=== PATIENT | female | born 1955 | race Caucasian/White ===

== ENCOUNTER → 2020-08-16 | Outpatient (CLI) | payer MEDICARE, OTHER ==
[~2020-08-16] MED LIST: ACET325C5 PO; AMLO5CAP45 PO; ASPI81CH33 PO; ATEN50TA2 PO; CALCTAB89 PO; EZET10TA21 PO; FURO20TA2 PO; LIDOCAINE 1% MDV 20ML VIAL As Ordered ONE; OMEG12003 PO; SIMV20TA22 PO; SODIUM BICARBONATE 8.4% INJ 50MEQ 50 ML VIAL As Ordered ONE; THERTAB52 PO; TRAM50TA2 PO; VITA50005 PO
[2020-08-16 11:15] VITALS: BP 123/62
--- NOTE | 2020-08-16 16:42 | REP ---
INDICATION: LT CHEST/PARASPINAL CHEST MASS. COMPARISON: None. TECHNIQUE: The procedure is performed by LANDRY Arce, under the direct supervision of Dr. Hall. The risks and benefits of the procedure were explained to the patient and informed consent was obtained both orally and written. Directly prior to the start of the procedure, a formal timeout was done in the exam room. One of the several mediastinal lymph nodes was localized using CT guidance. Skin was prepped and draped in the usual sterile fashion. Four ml of 1% lidocaine 10 mg/ml was used as a local anesthetic. FINDINGS: Using CT guidance a 19/20 gauge coaxial needle biopsy system was inserted and advanced into 1 of the right sided paraspinal lymph nodes. Eight core biopsy samples were obtained, 4 were placed in formalin and sent to the lab, and remaining 4 were placed in RPMI solution to be sent out. CT images obtained directly after the biopsy show no evidence of pneumothorax, or hematoma. After the appropriate amount of monitored convalescence the patient was discharged from the department. IMPRESSION: CT guided Lorudes spinal lymph node biopsy <Electronically signed by Negar Hampton > 08/16/20 [id number] <Electronically signed by Niitsh Hall > 08/16/20 [id number]
== END ==
LOC: M IRPRO 07:54
PROVIDERS: ATTEND Specialist
DX: C77.1 Secondary and unspecified malignant neoplasm of intrathoracic lymph nodes (principal)

== ENCOUNTER → 2020-08-23 | Outpatient (CLI) | payer MEDICARE, OTHER ==
[~2020-08-23] MED LIST changes: +MIDAZOLAM INJ 2MG/2ML VIAL (J2250 PER 1MG) As Ordered ONE; +ONDA8TAB8 PO; +PROC10TA4 PO; +PROMETHAZINE INJ 25 MG/ML VIAL (J2550) As Ordered ONE; -SODIUM BICARBONATE 8.4% INJ 50MEQ 50 ML VIAL As Ordered ONE; +ceFAZolin 1GM VIAL (J0690 PER 500MG) As Ordered ONE; +diphenhydrAMINE 50MG/ML VIAL (J1200) As Ordered ONE; +fentaNYL 100 MCG/2 ML INJECTION (J3010) As Ordered ONE
--- NOTE | 2020-08-23 08:27 | IRHP ---
[facility] IR Pre-Procedure H & P General Date of Service: Aug 23, 2020 Procedure: Same Day Surgery Interval History and Physical I have seen the patient and reviewed last H & P performed within 30 days. There is no significant interval change. History of Present Illness Chief Complaint The patient is a 65-year-old female admitted with a reason for visit of Lymphoproliferative Disease. PRE-PROCEDURE DIAGNOSIS: lymphoma HEART: normal rate. LUNGS: Normal breathing at rest. ASA Classification ASA Classification: III-Severe systemic dis. Mallampati Score: II NPO: Yes Problems with prior sedation: No Obstructive Sleep Apnea: No Plan moderate sedation Allergies Coded Allergies: ciprofloxacin (Verified Allergy, Intermediate, HIVES AND RASH, 08/03/20) Home Medications Scheduled Amlodipine Besylate/Benazepril (Amlodipine-Benazepril 5-40 mg), 1 CAP PO DAILY, (Reported) Aspirin (Aspirin), 81 MG PO DAILY, (Reported) Atenolol (Atenolol), 1 TAB PO DAILY, (Reported) Ezetimibe (Ezetimibe), 10 MG PO DAILY, (Reported) Furosemide (Furosemide), 1 TAB PO DAILY, (Reported) Nichols-3/Dha/Epa/Fish Oil (Fish Oil 1,200 mg Softgel), 1 CAP PO BID, (Reported) Simvastatin (Simvastatin), 1 TAB PO QPM, (Reported) Scheduled PRN Tramadol HCl (Tramadol HCl), 1 TAB PO QIDP PRN for pain, (Reported) Miscellaneous Medications Acetaminophen (Tylenol), 325 MG PO, (Reported) Ergocalciferol (Vitamin D2) (Vitamin D2), 1,250 MCG PO, (Reported) Discontinued Medications Aspirin (Aspirin), Unknown Dose PO DAILY, (Reported) Discontinued Reason: Pt states not taking Calcium Carbonate (Calcium), 1 TAB PO DAILY, (Reported) Discontinued Reason: Pt states not taking Multivitamin,Therapeutic (Thera-Tabs), 1 TAB PO DAILY, (Reported) Discontinued Reason: Pt states not taking VS, I&O, 24H, Fishbone Vital Signs/I&O Vital Signs Date Time Temp Pulse Resp B/P (MAP) Pulse Ox O2 Delivery O2 Flow Rate FiO2 08/23/20 07:35 98.3 58 18 95 Room Air LASHAE SANTOS MD Aug 23, 2020 08:27
[2020-08-23 11:00] VITALS: BP 137/60
--- NOTE | 2020-08-24 10:14 | POST-OPPD ---
Postoperative Procedure Note Date Of Procedure: Aug 23, 2020 Time Of Procedure: 16:00 IR Ultrasound and fluoroscopy guided port placement. IR Ultrasound of the neck. IR Moderate sedation. Clinical indication: Lymphoma. Physician: Dr. Parr. Procedure: The patient was advised of the benefits, risks, and alternatives of the procedure and informed consent was obtained. A time-out was performed with verification of the patient's name, MRN, site of procedure and type of procedure to be performed. The patient was positioned in the supine position on the angiographic table. The site was prepped and draped in the usual sterile fashion. Moderate sedation was performed by the physician including the presence of an independent trained RN who assisted and monitored the patient's level of consciousness and physiologic status. Following the administration of fentanyl and Versed , the physician spent 45 minutes of continuous face to face time with the patient. Ultrasound of the neck reveals a patent and compressible right internal jugular vein. A engineering consultant radiograph reveals no gross abnormality. The neck and anterior chest wall were anesthetized with lidocaine. The right internal jugular vein was accessed using a microintroducer needle under ultrasound guidance, via a lateral approach. An 018 wire was advanced into the superior vena cava, the needle was removed and a microsheath was placed. An Amplatz wire was then passed into the inferior vena cava. An incision at the internal jugular vein access site and anterior chest wall were made using a scalpel. An incision was made at the anterior chest wall. A small pocket was created using a combination of blunt and sharp dissection. A tunneling device was then used to pass the catheter from the pocket to the neck puncture site. An 8- Gabonese Angio mVisum Smart power port was then positioned in the pocket. The catheter was then measured and cut. The introducer sheath was exchanged for a peel-away sheath. The catheter was passed through the peel-away sheath into the internal jugular vein and the peel-away sheath was removed. The port tip was positioned at the cavoatrial junction. The port was then accessed with a Tate needle. The port flushes and aspirates well. The puncture site in the neck was closed. The chest wall incision was then closed with 2-0 Vicryl and 4-0 Monocryl. Glue and Steri- Strips were applied. A sterile dressing was then applied. The patient tolerated the procedure well and was returned to the PRU in stable condition. Estimated blood loss: <5 ml. Complications: None. Conclusion: 1. Successful placement of an 8-Gabonese Angio dynamics Smart power port via the right internal jugular vein. The port is ready for immediate use. 2. Patient to follow up in IR clinic in 2 weeks. Thank you for this referral. LASHAE PARR MD Aug 24, 2020 10:14
== END ==
LOC: M IRPRO 07:21
PROVIDERS: ATTEND Radiology Diagnostic Radiology
DX: D47.9 Neoplasm of uncertain behavior of lymphoid, hematopoietic and related tissue, unspecified (principal); Z79.899 Other long term (current) drug therapy
CPT/HCPCS: 36561; 99152; 99153; C1769; C1788; C1894; J0690; J1642; J1644; J2250; J3010

== ENCOUNTER → 2020-08-28 | Outpatient (CLI) | payer MEDICARE, OTHER ==
[~2020-08-28] MED LIST changes: -LIDOCAINE 1% MDV 20ML VIAL As Ordered ONE; -MIDAZOLAM INJ 2MG/2ML VIAL (J2250 PER 1MG) As Ordered ONE; +OXYC1TAB23 PO; -PROMETHAZINE INJ 25 MG/ML VIAL (J2550) As Ordered ONE; -ceFAZolin 1GM VIAL (J0690 PER 500MG) As Ordered ONE; -diphenhydrAMINE 50MG/ML VIAL (J1200) As Ordered ONE; -fentaNYL 100 MCG/2 ML INJECTION (J3010) As Ordered ONE
--- NOTE | 2020-09-04 14:03 | REP ---
INDICATION: STAGING LEFT LUNG CANCER C34.82. COMPARISON: Comparison CT chest 07/18/2020.. TECHNIQUE: Forty-seven minutes following the intravenous injection of a 14.75 mCi dose of F-18 FDG, three-dimensional PET scintigraphy is acquired from the skull base to the proximal thighs. Triplanar noncontrast CT scanning is acquired through the same anatomic range for attenuation correction, and image registration with scan parameters optimized to minimize radiation exposure to the patient. PET scintigraphy and CT datasets were fused and displayed on a workstation with multiplanar and projection display capability. FINDINGS: There is left-sided hypermetabolic supraclavicular lymphadenopathy as seen on the chest CT. Maximum standard uptake value 7.26. There is left axillary hypermetabolic activity. There are pleural based hypermetabolic nodular foci bilaterally. A small left medial apical pleural based focus has 7.16 SUV. A larger pleural based mass on the right at the level of the posterior aspect of the aortic knob is maximum SUV value 14.78. There is bulky confluent subcarinal and middle mediastinal lymphadenopathy. Maximum standard uptake value 17.11. There is left hilar hypermetabolic jinny activity which is confluent with this maximum SUV value 13.90. Another pleural-based focus in the left base is 6.92 SUV. There is retrocrural hypermetabolic adenopathy bilaterally maximum standard uptake value 9.14 on the left and 7.75 on the right. There are multiple metastatic hypermetabolic foci in the liver maximum standard uptake value ranging up to 11 point 0 8. There is bulky hypermetabolic celiac axis adenopathy, maximum SUV value 8.78. No other abnormal hypermetabolic focus is seen. There are small bilateral pleural effusions. No hypermetabolic lung mass or obvious lung nodule is seen. IMPRESSION: Bulky hypermetabolic jinny distribution in adenopathy including left supraclavicular, left axillary, mediastinal, retrocrural and epicardial Ack and, and celiac axis lymph node distribution. There are pleural based foci bilaterally in the paravertebral distribution. There are metastatic hypermetabolic foci in the liver. Small bilateral pleural effusions are noted. <Electronically signed by Nitish Hall > 09/04/20 [id number]
== END ==
LOC: M PLARAD 14:16
PROVIDERS: ATTEND Specialist
DX: C34.82 Malignant neoplasm of overlapping sites of left bronchus and lung (principal)
CPT/HCPCS: 78815; A9552

== ENCOUNTER → 2020-08-29 | Outpatient (CLI) | payer MEDICARE, OTHER ==
[~2020-08-29] MED LIST changes: -OXYC1TAB23 PO; +PROHANCE 279.3MG/ML 15ML VIAL As Ordered ONE
--- NOTE | 2020-08-30 08:54 | REPVR ---
PROCEDURE INFORMATION: Exam: MR Head Without and With Contrast Exam date and time: 08/29/2020 7:39 PM Age: 65 years old Clinical indication: Primary cancer: Lung. TECHNIQUE: Imaging protocol: MR of the head without and with intravenous contrast. Contrast material: PROHANCE; Contrast volume: 13 ml; Contrast route: INTRAVENOUS (IV); COMPARISON: No relevant prior studies available. FINDINGS: Brain: There are occasional nonspecific foci of high signal abnormality in the avila radiata and centrum semiovale. These are best seen on the flair images. These foci may represent areas of gliosis, demyelination, and/or chronic ischemic change. Cerebral ventricles: Normal. No ventriculomegaly. Bones/joints: Unremarkable. Paranasal sinuses: Normal as visualized. No acute sinusitis. Mastoid air cells: Normal as visualized. No mastoid effusion. Orbital cavity: Unremarkable. Soft tissues: Unremarkable. Other findings: There is no abnormal enhancement. IMPRESSION: No acute findings. Electronically signed by: Augustin Lieberman On 08/30/2020 08:54:59 AM
== END ==
LOC: M RAD 17:49
PROVIDERS: ATTEND Specialist
DX: C34.90 Malignant neoplasm of unspecified part of unspecified bronchus or lung (principal)
CPT/HCPCS: 70553; A9576

== ENCOUNTER → 2020-09-12 | Outpatient (POV) | payer MEDICARE, OTHER ==
[~2020-09-12] MED LIST changes: +OXYC1TAB23 PO; -PROHANCE 279.3MG/ML 15ML VIAL As Ordered ONE
--- NOTE | 2020-09-14 10:38 | IRPN ---
[facility] IR Progress Note IR Progress Note DATE: Sep 12, 2020 Patient agreed to this telephone follow-up. I spent 5 minutes talking to the patient. FOLLOW-UP: Status post port placement. Patient states the port site is doing well. No pain, discharge or swelling. Port was used without any issues. ON EXAMINATION: No video on patient side. IMPRESSION: Doing well status post port placement. No further follow-up scheduled unless initiated by patient and or referring provider. Thank you for this referral Allergies Coded Allergies: ciprofloxacin (Verified Allergy, Intermediate, HIVES AND RASH, 08/03/20) LASHAE SANTOS MD Sep 14, 2020 10:38
== END ==
LOC: M TMIRPOV 09:02
PROVIDERS: ATTEND Radiology Diagnostic Radiology
DX: Z45.2 Encounter for adjustment and management of vascular access device (principal)

== ENCOUNTER → 2020-09-13 | Outpatient (CLI) | payer MEDICARE, OTHER ==
[~2020-09-13] MED LIST changes: +COLA100C5 PO; +DIFL10SU PO; +FENT12DI8 TOP; +MAGICMW SSP; +OXYC-517 PO; +SENN8.6T28 PO
--- NOTE | 2020-09-13 10:46 | RADONC.CN ---
Radiation Oncology Hx/Consult Radiation Oncology Consult Date of Service: Sep 13, 2020 Pt Identifier Caitlin Ocampo is a 65 year old female former smoker (quit 08/21/20) with newly diagnosed ES SCLC [id number]. She has started first line chemotherapy with Dr. Wooten on 09/06/20 and is seen today for consideration of palliative RT due to concern of severe back and abdominal pain as well as dysphagia from her large confluent jinny masses. Diagnosis/Treatment History Oncologic History Presented in June 2020 with new onset back pain and abdominal pain. This led to a CT chest on 07/18/20 which showed a left supraclavicular node as well as a periaortic jinny conglomerate measuring ~ 9 cm in greatest extent. CT biopsy of the periaortic mass on 08/16/20 revealed SCLC. She underwent PET-CT on 08/28/20 which showed liver metastases as well as mesenteric and celiac adenopathy in addition to the previously identified thoracic disease. She had MRI brain on 08/29/20 which was negative. Carboplatin/etoposide/atezolizumab was started on 09/06/20. Relevant data: 08/16/20 Biopsy Soft tissue, mass, core biopsy and flow cytometry: Small cell carcinoma (see comment). -4/TR 08/28/20 PET-CT FINDINGS: There is left-sided hypermetabolic supraclavicular lymphadenopathy as seen on the chest CT. Maximum standard uptake value 7.26. There is left axillary hypermetabolic activity. There are pleural based hypermetabolic nodular foci bilaterally. A small left medial apical pleural based focus has 7.16 SUV. A larger pleural based mass on the right at the level of the posterior aspect of the aortic knob is maximum SUV value 14.78. There is bulky confluent subcarinal and middle mediastinal lympha denopathy. Maximum standard uptake value 17.11. There is left hilar hypermetabolic jinny activity which is confluent with this maximum SUV value 13.90. Another pleural- based focus in the left base is 6.92 SUV. There is retrocrural hypermetabolic adenopa thy bilaterally maximum standard uptake value 9.14 on the left and 7.75 on the right. There are multiple metastatic hypermetabolic foci in the liver maximum standard uptake value ranging up to 11 point 0 8. There is bulky hypermetabolic celiac axis adenopathy, maximum SUV value 8.78. No other abnormal hypermetabolic focus is seen. There are small bilateral pleural effusions. No hypermetabolic lung mass or obvious lung nodule is seen. IMPRESSION: Bulky hypermetabolic jinny distribution in adenopathy including left supraclavicular, left axillary, mediastinal, retrocrural and epicardial Ack and, and celiac axis lymph node distribution. There are pleural based foci bilaterally in the paravertebral distribution. There are metastatic hypermetabolic foci in the liver. Small bilateral pleural effusions are noted. 08/29/20 MRI head FINDINGS: Brain: There are occasional nonspecific foci of high signal abnormality in the avila radiata and centrum semiovale. These are best seen on the flair images. These foci may represent areas of gliosis, demyelination, and/or chronic ischemic change. Cerebral ventricles: Normal. No ventriculomegaly. Bones/joints: Unremarkable. Paranasal sinuses: Normal as visualized. No acute sinusitis. Mastoid air cells: Normal as visualized. No mastoid effusion. Orbital cavity: Unremarkable. Soft tissues: Unremarkable. Other findings: There is no abnormal enhancement. IMPRESSION: No acute findings. Interval History Caitlin is here with her . Her pain is predominantly in the left mid-back and upper abdomen. Without pain medication (currently on 12.5 mcg fentanyl patch and percocet PRN) pain is 8-10/10 constant. With pain medication she has good control 0-1/10. She is also having dysphagia to solids. Can eat soft food and drink without much difficulty. She has lost some weight. She had nausea with her first cycle of chemotherapy which is now improved. She has quit smoking, does not desire quit aids at this time. Past Medical History: HTN HPL Past Surgical History: Tubal ligation 1983 Family History: Brother prostate cancer alive Grandmother breast cancer Cousin HL Social History: 25+ pack year former smoker Does not abuse alcohol Allergies / Meds Allergies: Coded Allergies: ciprofloxacin (Verified Allergy, Intermediate, HIVES AND RASH, 08/03/20) Home Meds Active Scripts Oxycodone HCl/Acetaminophen (Oxycodone-Acetaminophen 5-325) 1 Each Tablet, 1 TAB PO TIDP PRN for pain MDD 3 Tablet(s) for 20 Days, #60 TAB Prov:JC WOTOEN MD 09/06/20 Prochlorperazine Maleate (Prochlorperazine Maleate) 10 Mg Tablet, 10 MG PO Q8HP PRN for NAUSEA OR VOMITING, #30 TAB 3 Refills Prov:JC WOOTEN MD 08/25/20 Ondansetron (Ondansetron Odt) 8 Mg Tab.rapdis, 8 MG PO Q8HP PRN for NAUSEA OR VOMITING, #30 TAB 3 Refills Prov:JC WOOTEN MD 08/25/20 Reported Medications Acetaminophen (Tylenol) 325 Mg Capsule, 325 MG PO, CAP 08/03/20 Tramadol HCl (Tramadol HCl) 50 Mg Tablet, 1 TAB PO QIDP PRN for pain MDD 2 Tablet(s) for 30 Days, #60 TAB 08/03/20 Furosemide (Furosemide) 20 Mg Tablet, 1 TAB PO DAILY for 30 Days, #30 TAB 08/03/20 Atenolol (Atenolol) 50 Mg Tablet, 1 TAB PO DAILY for 30 Days, #30 TAB 08/03/20 Amlodipine Besylate/Benazepril (Amlodipine-Benazepril 5-40 mg) 1 Each Capsule, 1 CAP PO DAILY for 30 Days, #30 CAP 08/03/20 Ezetimibe (Ezetimibe) 10 Mg Tablet, 10 MG PO DAILY for 30 Days, #30 TAB 08/03/20 Ergocalciferol (Vitamin D2) (Vitamin D2) 50,000 Units Cap, 1250 MCG PO, CAP 08/03/20 Simvastatin (Simvastatin) 20 Mg Tablet, 1 TAB PO QPM for 30 Days, #30 TAB 08/03/20 Discontinued Reported Medications Aspirin (Aspirin) 81 Mg Tab.chew, 81 MG PO DAILY for pain for 30 Days, #30 TAB 08/21/20 Lindsay-3/Dha/Epa/Fish Oil (Fish Oil 1,200 mg Softgel) 1 Each Capsule.dr, 1 CAP PO BID for 30 Days, #60 CAP 08/03/20 Review of Systems Constitutional: Reports: Fatigue, Weight Loss; Denies: Chills, Fever, Night Sweats Eyes: Denies: Pain, Vision change HEENT: Denies: Head Aches, Dysphagia, Sore Throat Skin: Denies: Rash, Lesions, Bruising Pulmonary: Reports: Dyspnea; Denies: Cough Cardiovascular: Reports: Chest Pain; Denies: Palpitations, Edema Gastrointestinal: Reports: Abdominal Pain; Denies: Nausea, Vomiting, Diarrhea Genitourinary: Denies: Dysuria, Frequency, Incontinence Hematologic: Denies: Bruising, Petecchia, Enlarged Lymph Nodes Musculoskeletal: Reports: Back pain; Denies: Neck pain Neurological: Denies: Weakness, Numbness, Incoordination Psych: Reports: Mood Normal; Denies: Memory Issues, Thoughts of Self Harm Vital Signs Ht 67" Wt 144 lbs T 98 P 72 RR 18 BP 89/64 O2 96% Pain 0 Fatigue 0 General Exam: Positive: Alert, Cooperative, No Acute Distress Eye Exam: Positive: PERRLA, EOMI ENT EXAM: Positive: Mucous membr. moist/pink, Pharynx Normal Neck Exam: Negative: Thyromegaly, Lymphadenopathy (Left supraclavicular fossa withtout appreciable adenopathy) Chest Exam: Negative: Normal air movement (Diminished right base. Pleural rub left mid-base), Rales, Rhonchi, Wheezing Heart Exam: Positive: Rate Normal, Regular Rhythm; Negative: Gallops, Murmurs, Rubs Abdomen Exam: Positive: Normal bowel sounds, Soft; Negative: Tenderness, Mass Extremity Exam: Negative: Edema, Tenderness Skin Exam: Positive: Nl turgor and temperature; Negative: Rash Neuro Exam: Positive: Normal Gait, Normal Speech, Cranial Nerves 3-12 NL Psych Exam: Positive: Mental status NL, Mood NL, Memory Intact Diagnostic and Laboratory Diagnostic Review Radiologic images, relevant labs and pathology reports were personally reviewed and discussed with Ms. Ocampo. Assessment and Plan Impression Ms. Ocampo is a 65 year old female former smoker (quit 08/21/20) with newly diagnosed ES SCLC [id number]. She has started first line chemotherapy with Dr. Wooten on 09/06/20 and is seen today for consideration of palliative RT due to concern of severe back and abdominal pain as well as dysphagia from her large confluent jinny masses. Stage SCLC ES [id number] stage IVB Performance Status ECOG 1 Plan We had an extensive discussion with Ms. Ocampo regarding the diagnosis at hand and available therapeutic options. She has an unusual distribution of disease without an obvious primary or hilar mass. Her adenopathy in the chest is extensive periaortic and compressing her esophagus causing her dysphagia. In addition she reports left mid-back pain which could be emanating from this large mass as well. She also has abdominal pain which is best explained by the bulky celiac and mesenteric adenopathy, which is essentially contiguous with the thoracic jinny burden. She has started chemotherapy and we discussed this is the mainstay of treatment, however given her symptoms, I think she would benefit from palliative RT to the thoracic and upper abdominal jinny burden, I would give 30 Gy in 10 fractions with DCA planning, given that this is a contiguous field, with daily CBCT for localization. The goals are relief of pain and dysphagia. We discussed the logistics of receiving radiation therapy in detail including the need for a 1-time planning session. This will occur 09/14/20. We reviewed the side effects of RT including fatigue, nausea, and in particular esophagitis, which should be mild and self limited, especially as she is on an effective narcotic regimen to start. I also will be ordering an MRI scan for ~ 3 months from now to inform PCI deci erika making. I explained briefly the role of PCI in ES SCLC and that the alternative of MRI surveillance is equally viable should there be no evidence of brain metastases at the end of systemic therapy. After discussing the risks, benefits and alternatives to radiation therapy, Ms. Ocampo was amenable to pursuing radiotherapy. All questions were answered to the patient's satisfaction. We instructed the patient that if there were any questions,concerns or changes in clinical status in the interim to contact us. Recommendations Palliative RT to jinny masses 30 Gy in 10 fractions Simulation tomorrow MRI head in 3 months for PCI decision making Billing Statement Total time of [33] minutes was spent preparing for the visit [3], obtaining HPI [5], examining the patient [3], reviewing diagnostic tests [4], discussing management options [10], coordinating care [2], and writing this note [6]. PREMA FERMIN MD Sep 13, 2020 10:45
== END ==
LOC: M ONCR 09:14
PROVIDERS: ATTEND General Practice
DX: C34.90 Malignant neoplasm of unspecified part of unspecified bronchus or lung (principal); Z87.891 Personal history of nicotine dependence; M54.9 Dorsalgia, unspecified; R10.9 Unspecified abdominal pain; R13.10 Dysphagia, unspecified

== ENCOUNTER 2020-09-14 08:54 | Outpatient (RCR) | payer MEDICARE, OTHER ==
[~2020-09-14 08:54] MED LIST changes: -COLA100C5 PO; -DIFL10SU PO; -FENT12DI8 TOP; -MAGICMW SSP; -OXYC-517 PO; -SENN8.6T28 PO
== END 2020-09-17 ==
LOC: M ONCR 08:54
PROVIDERS: ATTEND General Practice
DX: C34.11 Malignant neoplasm of upper lobe, right bronchus or lung (principal)
CPT/HCPCS: 77290; 77334; G0463

== ENCOUNTER 2020-10-03 08:21 | Outpatient (RCR) | payer MEDICARE, OTHER ==
[2020-10-18] MEDS ORDERED: DIFL10SU PO (07:59)
== END 2020-10-18 ==
LOC: M ONCR 08:21
PROVIDERS: ATTEND General Practice
DX: C34.11 Malignant neoplasm of upper lobe, right bronchus or lung (principal)

== ENCOUNTER → 2020-10-03 | Outpatient (POV) | payer MEDICARE, OTHER ==
[~2020-10-03] MED LIST changes: +COLA100C5 PO; +FENT12DI8 TOP; +MAGICMW SSP; +OXYC-517 PO
--- NOTE | 2020-10-05 15:36 | IRPN ---
[facility] IR Progress Note IR Progress Note DATE: Oct 03, 2020 Patient agreed to telephone follow-up. I spent 5 minutes talking to the patient. FOLLOW-UP: Status post right chest port placement on august, patient reports she was told the port has flipped. IMPRESSION: 65-year-old female 1 month status post right chest port placement. Patient will be brought in tomorrow for evaluation of the right port and/or new left port placement. Allergies Coded Allergies: ciprofloxacin (Verified Allergy, Intermediate, HIVES AND RASH, 08/03/20) LASHAE SANTOS MD Oct 05, 2020 15:36
== END ==
LOC: M TMIRPOV 10:18
PROVIDERS: ATTEND Radiology Diagnostic Radiology
DX: Z45.2 Encounter for adjustment and management of vascular access device (principal)

== ENCOUNTER → 2020-10-04 | Outpatient (CLI) | payer MEDICARE, OTHER ==
[~2020-10-04] MED LIST changes: +ISOVUE-300 61% 50ML VIAL As Ordered ONE; +LIDOCAINE 1% MDV 20ML VIAL As Ordered ONE; +MIDAZOLAM INJ 2MG/2ML VIAL (J2250 PER 1MG) As Ordered ONE; +ceFAZolin 2 GM/D5W 50 ML IV BAG (J0690 PER 500MG) As Ordered ONE; +diphenhydrAMINE 50MG/ML VIAL (J1200) As Ordered ONE; +fentaNYL 100 MCG/2 ML INJECTION (J3010) As Ordered ONE
--- NOTE | 2020-10-04 13:45 | IRHP ---
[facility] IR Pre-Procedure H & P General Date of Service: Oct 04, 2020 Procedure: Same Day Surgery Interval History and Physical I have seen the patient and reviewed last H & P performed within 30 days. There is no significant interval change. History of Present Illness Chief Complaint The patient is a 65-year-old female admitted with a reason for visit of lung Cancer. PRE-PROCEDURE DIAGNOSIS: Lung cancer HEART: Normal rate. LUNGS: Normal breathing at rest. ASA Classification ASA Classification: III-Severe systemic dis. Mallampati Score: II NPO: Yes Problems with prior sedation: No Obstructive Sleep Apnea: No Plan moderate sedation Allergies Coded Allergies: ciprofloxacin (Verified Allergy, Intermediate, HIVES AND RASH, 08/03/20) Home Medications Scheduled Docusate Sodium (Colace), 1 CAP PO DAILY, (Reported) Fentanyl (Fentanyl), 1 PATCH TOP Q3D, (Reported) Scheduled PRN Magic Mouthwash (First-Mouthwash Blm), 10 ML SSP QID PRN for Esophagitis Ondansetron (Ondansetron Odt), 8 MG PO Q8HP PRN for NAUSEA OR VOMITING Oxycodone HCl (Oxycodone HCl), 1 TAB PO 6XD PRN for pain Prochlorperazine Maleate (Prochlorperazine Maleate), 10 MG PO Q8HP PRN for NAUSEA OR VOMITING Miscellaneous Medications Acetaminophen (Tylenol), 325 MG PO, (Reported) Discontinued Medications Amlodipine Besylate/Benazepril (Amlodipine-Benazepril 5-40 mg), 1 CAP PO DAILY, (Reported) Discontinued Reason: Pt states not taking Atenolol (Atenolol), 1 TAB PO DAILY, (Reported) Discontinued Reason: Pt states not taking Ergocalciferol (Vitamin D2) (Vitamin D2), 1,250 MCG PO, (Reported) Discontinued Reason: Pt states not taking Ezetimibe (Ezetimibe), 10 MG PO DAILY, (Reported) Discontinued Reason: Pt states not taking Furosemide (Furosemide), 1 TAB PO DAILY, (Reported) Discontinued Reason: Pt states not taking Oxycodone HCl/Acetaminophen (Oxycodone-Acetaminophen 5-325), 1 TAB PO TIDP PRN for pain Discontinued Reason: Pt states not taking Simvastatin (Simvastatin), 1 TAB PO QPM, (Reported) Discontinued Reason: Pt states not taking Tramadol HCl (Tramadol HCl), 1 TAB PO QIDP PRN for pain, (Reported) Discontinued Reason: Pt states not taking VS, I&O, 24H, Fishbone Vital Signs/I&O Vital Signs Date Time Temp Pulse Resp B/P (MAP) Pulse Ox O2 Delivery O2 Flow Rate FiO2 10/04/20 12:53 98.2 115 18 99 Room Air LASHAE SANTOS MD Oct 04, 2020 13:45
[2020-10-04 16:00] VITALS: BP 129/70
--- NOTE | 2020-10-05 16:15 | IRPON ---
IR Postoperative Note Date Of Procedure: Oct 04, 2020 Time Of Procedure: 16:00 IR Postoperative Note IR Ultrasound and fluoroscopy guided port placement. IR Ultrasound of the neck. IR Moderate sedation. Clinical indication: Lung cancer. Right chest port has had flipped. Physician: Dr. Parr. Procedure: The patient was advised of the benefits, risks, and alternatives of the procedure and informed consent was obtained. A time-out was performed with verification of the patient's name, MRN, site of procedure and type of procedure to be performed. The patient was positioned in the supine position on the angiographic table. The site was prepped and draped in the usual sterile fashion. Moderate sedation was performed by the physician including the presence of an independent trained RN who assisted and monitored the patient's level of consciousness and physiologic status. Following the administration of fentanyl and Versed , the physician spent 45 minutes of continuous face to face time with the patient. Ultrasound of the neck reveals a patent and compressible left internal jugular vein. A social work assistant radiograph reveals flipped right chest port. The neck and anterior chest wall were anesthetized with lidocaine. The left internal jugular vein was accessed using a microintroducer needle under ultrasound guidance, via a lateral approach. An 018 wire was advanced into the superior vena cava, the needle was removed and a microsheath was placed. An Amplatz wire was then passed into the inferior vena cava. An incision at the internal jugular vein access site and anterior chest wall were made using a scalpel. An incision was made at the anterior chest wall. A small pocket was created using a combination of blunt and sharp dissection. A tunneling device was then used to pass the catheter from the pocket to the neck puncture site. An 8- Bulgarian Angio MasCupon Smart power port was then positioned in the pocket. The catheter was then measured and cut. The introducer sheath was exchanged for a peel-away sheath. The catheter was passed through the peel-away sheath into the internal jugular vein and the peel-away sheath was removed. The port tip was positioned at the cavoatrial junction. The port was then accessed with a Tate needle. The port flushes and aspirates well. The puncture site in the neck was closed. The chest wall incision was then closed with 2-0 Vicryl and 4-0 Monocryl. Glue and Steri-S trips were applied. A sterile dressing was then applied. The patient tolerated the procedure well and was returned to the PRU in stable condition. Estimated blood loss: <5 ml. Complications: None. Conclusion: 1. Successful placement of an 8-Bulgarian Angio dynamics Smart power port via the left internal jugular vein. The port is ready for immediate use. 2. Patient to follow up in IR clinic in 2 weeks. 3. Patient will be brought back for right chest port removal after the left port site is healed. Thank you for this referral. LASHAE PARR MD Oct 05, 2020 16:15
== END ==
LOC: M IRPRO 12:41
PROVIDERS: ATTEND Radiology Diagnostic Radiology
DX: C34.90 Malignant neoplasm of unspecified part of unspecified bronchus or lung (principal); T82.528A Displacement of other cardiac and vascular devices and implants, initial encounter; X58.XXXA Exposure to other specified factors, initial encounter
CPT/HCPCS: 36561; 99152; 99153; C1769; C1788; C1894; J0690; J1200; J1642; J1644; J2250; J3010

== ENCOUNTER → 2020-10-17 | Outpatient (POV) | payer MEDICARE, OTHER ==
[~2020-10-17] MED LIST changes: +DIFL10SU PO; -ISOVUE-300 61% 50ML VIAL As Ordered ONE; -LIDOCAINE 1% MDV 20ML VIAL As Ordered ONE; -MIDAZOLAM INJ 2MG/2ML VIAL (J2250 PER 1MG) As Ordered ONE; -ceFAZolin 2 GM/D5W 50 ML IV BAG (J0690 PER 500MG) As Ordered ONE; -diphenhydrAMINE 50MG/ML VIAL (J1200) As Ordered ONE; -fentaNYL 100 MCG/2 ML INJECTION (J3010) As Ordered ONE
--- NOTE | 2020-10-20 10:10 | IRPN ---
[facility] IR Progress Note IR Progress Note DATE: Oct 17, 2020 Patient agreed to this telephone follow up. I spent 5 minutes talking to the patient. FOLLOW-UP: Status post left port placement. Patients reports doing well. Denies pain, swelling or discharge at the site. Port was used without any issues. ON EXAMINATION: No video on patient side. Patient sent images of the port site. Site is healing well. No redness or discharge. IMPRESSION: Doing well status post left sided port placement. Once the new port is incorporated, patient will be brought back for right port removal in 6 weeks. Thank you for this referral Allergies Coded Allergies: ciprofloxacin (Verified Allergy, Intermediate, HIVES AND RASH, 08/03/20) LASHAE SANTOS MD Oct 20, 2020 10:10
== END ==
LOC: M TMIRPOV 08:30
PROVIDERS: ATTEND Radiology Diagnostic Radiology
DX: Z45.2 Encounter for adjustment and management of vascular access device (principal)

== ENCOUNTER 2020-11-03 12:02 | Outpatient (CLI) | payer MEDICARE, OTHER ==
[~2020-11-03 12:02] MED LIST changes: +ACETAMINOPHEN TAB 650MG DOSE (2X325MG) PO SCH; +diphenhydrAMINE 25MG CAP PO SCH
[2020-11-03] MEDS ORDERED: SODIUM CHLORIDE 0.9% INJ 10 ML SYR IV PRN (12:20)
[2020-11-03 13:30] VITALS: BP 104/60
[2020-11-03 13:45] VITALS: BP 114/61
[2020-11-03 14:30] VITALS: BP 119/66
[2020-11-03 15:02] VITALS: BP 122/60
[2020-11-03 15:30] VITALS: BP 128/58
[2020-11-03 15:31] VITALS: BP 128/58
[2020-11-04] MEDS ORDERED: SODIUM CHLORIDE 0.9% INJ 10 ML SYR IV SCH (09:00)
== END 2020-11-03 15:30 | disposition home or self-care (01) ==
LOC: M INFU 12:02
PROVIDERS: ATTEND Radiology Radiation Oncology
DX: D61.1 Drug-induced aplastic anemia (principal); C34.92 Malignant neoplasm of unspecified part of left bronchus or lung; C78.7 Secondary malignant neoplasm of liver and intrahepatic bile duct; C77.9 Secondary and unspecified malignant neoplasm of lymph node, unspecified
CPT/HCPCS: 36430; 36591; 85025; 85049; 85055; 86850; 86900; 86901; 86920; 96372; J1642; P9016; Q5106

== ENCOUNTER → 2020-11-21 | Outpatient (CLI) | payer MEDICARE, OTHER ==
[~2020-11-21] MED LIST changes: -ACETAMINOPHEN TAB 650MG DOSE (2X325MG) PO SCH; +GASTROGRAFIN SOLUTION 30ML (Q9963) As Ordered ONE; +ISOVUE-370 76% 100ML VIAL As Ordered ONE; +SENN8.6T28 PO; -diphenhydrAMINE 25MG CAP PO SCH
--- NOTE | 2020-11-21 14:04 | REP ---
INDICATION: SMALL CELL LUNG CA. COMPARISON: None. TECHNIQUE: CT chest performed following the intravenous administration of 100 cc of Isovue 370. Sagittal and coronal reconstruction images are performed. FINDINGS: Lungs: There is no infiltrate or suspicious nodule. There are underlying fibrotic and emphysematous changes with scattered tiny calcified granulomas. Mediastinum: The left supraclavicular adenopathy has resolved. The extensive posterior mediastinal and paravertebral adenopathy has resolved. There is mild hazy ill-defined soft tissue density surrounding the distal 3rd of the esophagus and also in the bilateral retrocrural regions, likely representing post treatment fibrotic change. Luzmaria: No adenopathy. Axilla: No adenopathy. Pleura: No effusion. Heart: Not enlarged. Thoracic aorta: No aneurysm or dissection. There are bilateral central venous catheters, the tips are in the superior vena cava. Visualized osseous structures: There are degenerative changes of the spine without compression deformity. IMPRESSION: The previously noted left supraclavicular and extensive mediastinal and paravertebral adenopathy has resolved. Mild hazy ill-defined soft tissue density surrounding the distal 3rd of the esophagus and in the bilateral retrocrural regions, likely representing mild post treatment fibrotic change. No suspicious pulmonary nodule. <Electronically signed by Rolf Dacosta > 11/21/20 1400
--- NOTE | 2020-11-21 14:21 | REP ---
INDICATION: SMALL CELL LUNG CA COMPARISON: PET-CT 08/28/2020. TECHNIQUE: CT Scan of the abdomen and pelvis was performed with intravenous administration of 100 cc of Isovue 370, and oral contrast. FINDINGS: Liver: 4 subcentimeter hypodense nodules are seen in the right lobe of the liver. One of these in the inferior aspect of the right lobe is located at the site of a hypermetabolic focus identified on the PET-CT of 08/28/2020. There is no CT evidence of nodule at the other sites in the liver which demonstrated hypermetabolic foci. Gallbladder: Unremarkable. Spleen: Normal. Adrenals: Normal. Pancreas: Normal. Kidneys: There is a 1.4 cm cyst in the upper pole the left kidney. Small and large bowel: There is diffuse thickening of the left transverse colon, the entire left and rectosigmoid colon compatible with non-specific colitis. Colon proximal to this is ezyg-bj-fitbkzvddc dilated. Free fluid: None. Abdominal aorta: No aneurysm or dissection. Adenopathy: The previously noted celiac adenopathy has resolved. No adenopathy in the abdomen or pelvis. Appendix: Not inflamed. Osseous structures: There are degenerative changes of the spine without compression fracture. Pelvis: No mass. IMPRESSION: Four subcentimeter hypodense nodules are seen in the right lobe of the liver. One of these in the inferior aspect of the right lobe is located at the site of a hypermetabolic focus identified on the PET-CT of 08/28/2020. There is no CT evidence of nodule at the other sites in the liver which demonstrated hypermetabolic foci. No adenopathy in the abdomen or pelvis. Diffuse thickening of the left transverse colon, the entire left colon and rectosigmoid colon compatible with diffuse nonspecific colitis. <Electronically signed by Rolf Dacosta > 11/21/20 [id number]
== END ==
LOC: M RAD 11:19
PROVIDERS: ATTEND Specialist
DX: C34.90 Malignant neoplasm of unspecified part of unspecified bronchus or lung (principal)
CPT/HCPCS: 71260; 74177; Q9963; Q9967

== ENCOUNTER → 2020-12-04 | Outpatient (CLI) | payer MEDICARE, OTHER ==
[~2020-12-04] MED LIST changes: -GASTROGRAFIN SOLUTION 30ML (Q9963) As Ordered ONE; -ISOVUE-370 76% 100ML VIAL As Ordered ONE; +LIDOCAINE 1% MDV 20ML VIAL As Ordered ONE; +MIDAZOLAM INJ 2MG/2ML VIAL (J2250 PER 1MG) As Ordered ONE; +ceFAZolin 1GM VIAL (J0690 PER 500MG) As Ordered ONE; +diphenhydrAMINE 50MG/ML VIAL (J1200) As Ordered ONE; +fentaNYL 100 MCG/2 ML INJECTION (J3010) As Ordered ONE
--- NOTE | 2020-12-04 08:22 | IRHP ---
[facility] IR Pre-Procedure H & P General Date of Service: December 04, 2020 Procedure: Same Day Surgery Interval History and Physical I have seen the patient and reviewed last H & P performed within 30 days. There is no significant interval change. History of Present Illness Chief Complaint The patient is a 65-year-old female admitted with a reason for visit of Cancer. PRE-PROCEDURE DIAGNOSIS: Lung cancer HEART: Normal rate. LUNGS: Normal breathing at rest. ASA Classification ASA Classification: III-Severe systemic dis. Mallampati Score: II NPO: Yes Problems with prior sedation: No Obstructive Sleep Apnea: No Plan moderate sedation Allergies Coded Allergies: ciprofloxacin (Verified Allergy, Intermediate, HIVES AND RASH, 08/03/20) Home Medications Scheduled Fentanyl (Fentanyl), 1 PATCH TOP Q3D, (Reported) Sennosides (Senna), 2 TAB PO QHS, (Reported) Scheduled PRN Magic Mouthwash (First-Mouthwash Blm), 10 ML SSP QID PRN for Esophagitis Ondansetron (Ondansetron Odt), 8 MG PO Q8HP PRN for NAUSEA OR VOMITING Oxycodone HCl (Oxycodone HCl), 1 TAB PO 6XD PRN for pain Prochlorperazine Maleate (Prochlorperazine Maleate), 10 MG PO Q8HP PRN for NAUSEA OR VOMITING Miscellaneous Medications Acetaminophen (Tylenol), 325 MG PO, (Reported) VS, I&O, 24H, Fishbone Vital Signs/I&O Vital Signs Date Time Temp Pulse Resp B/P (MAP) Pulse Ox O2 Delivery O2 Flow Rate FiO2 12/04/20 07:30 97.8 98 18 Room Air LASHAE SANTOS MD December 04, 2020 08:22
[2020-12-04 11:20] VITALS: BP 114/63
--- NOTE | 2020-12-04 14:41 | IRPON ---
IR Postoperative Note Date Of Procedure: December 04, 2020 Time Of Procedure: 14:39 IR Postoperative Note IR Port Removal / Explant. IR Moderate sedation. Clinical Information:Lung cancer. Flipped right-sided port. Left-sided port was placed and is healed and working well. Presents for right-sided port removal. Physician: Dr. Parr Procedure: The patient was advised of the benefits, risks, and alternatives of the procedure and informed consent was obtained. A time out was performed with verification of the patient's name, MRN, site of procedure, and type of procedure to be performed. The patient was positioned in the supine position on the angiographic table. The site was prepped and draped in the usual sterile fashion. Moderate sedation was performed by the physician including the presence of an independent trained RN who assisted in monitoring the patient's level of consciousness and physiological status. Following the administration of fentanyl and Versed the physician spent 30 minutes of continuous aice-gj-wlpq time with the patient. A dice dealer radiograph reveals a flipped right sided port. Left-sided port is in good position. The soft tissues overlying the right sided port were anesthetized with lidocaine. An incision was made over the port using a 15 blade scalpel in the l ocation of the prior incision. The catheter was then freed with blunt dissection and extracted. Pressure was applied to obtain hemostasis. The port was then freed with blunt dissection and subsequently removed. There were no signs of infection. After hemostasis was achieved, the incision was closed with interrupted deep 3-0 Vicryl sutures and subcuticular Monocryl suture followed by glue and steri-strips. The site was covered with a sterile dressing. The patient tolerated the procedure well and was returned to the PRU in stable condition. EBL:Less than 5 mL Complications:None. Conclusions: 1. Successful explant of a right-sided port. 2. No signs of infection. Thank you for this referral LASHAE PARR MD December 04, 2020 14:41
== END ==
LOC: M IRPRO 07:12
PROVIDERS: ATTEND Radiology Diagnostic Radiology
DX: Z45.2 Encounter for adjustment and management of vascular access device (principal); C34.90 Malignant neoplasm of unspecified part of unspecified bronchus or lung; Z88.1 Allergy status to other antibiotic agents
CPT/HCPCS: 36590; 99152; 99153; J0690; J1200; J1644; J2250; J3010

== ENCOUNTER → 2020-12-11 | Outpatient (CLI) | payer MEDICARE, OTHER ==
[~2020-12-11] MED LIST changes: -LIDOCAINE 1% MDV 20ML VIAL As Ordered ONE; -MIDAZOLAM INJ 2MG/2ML VIAL (J2250 PER 1MG) As Ordered ONE; +PROHANCE 279.3MG/ML 15ML VIAL As Ordered ONE; -ceFAZolin 1GM VIAL (J0690 PER 500MG) As Ordered ONE; -diphenhydrAMINE 50MG/ML VIAL (J1200) As Ordered ONE; -fentaNYL 100 MCG/2 ML INJECTION (J3010) As Ordered ONE
--- NOTE | 2020-12-11 13:00 | REPVR ---
PROCEDURE INFORMATION: Exam: MR Head Without and With Contrast Exam date and time: 12/11/2020 12:12 PM Age: 65 years old Clinical indication: Condition or disease; History of cancer (specify primary cancer site): ; Primary cancer: Lung; Additional info: [facility], brain surviellance TECHNIQUE: Imaging protocol: MR of the head without and with intravenous contrast. Contrast material: PROHANCE; Contrast volume: 12 ml; Contrast route: INTRAVENOUS (IV); COMPARISON: MRI-Brain W/O FOLL BY WITH 08/29/2020 6:22 PM FINDINGS: Brain: There is a new 6 mm enhancing lesion deep within a sulcus along the right parietal convexity (series 1001 frame 19, series 901 frame 15, and DWMI frame 25). Given the clinical history this likely represents metastatic disease. No other definite enhancing lesions are identified. There is no cerebral edema, mass effect, or midline shift. No acute intracranial hemorrhage is present. There is no acute infarct. Cerebral ventricles: No hydrocephalus. Bones/joints: Unremarkable. Paranasal sinuses: Normal as visualized. No acute sinusitis. Mastoid air cells: Normal as visualized. No mastoid effusion. Orbital cavity: Unremarkable. Soft tissues: Unremarkable. IMPRESSION: New 6 mm right parietal metastatic lesion Electronically signed by: Sam Little On 12/11/2020 13:00:34 PM
== END ==
LOC: M RAD 11:09
PROVIDERS: ATTEND Internal Medicine Medical Oncology
DX: C34.11 Malignant neoplasm of upper lobe, right bronchus or lung (principal)
CPT/HCPCS: 70553; A9576

== ENCOUNTER → 2021-01-10 | Outpatient (CLI) | payer MEDICARE, OTHER ==
[~2021-01-10] MED LIST changes: -AMLO5CAP45 PO; +AMLO5CAP53 PO; +CEPH500C PO; +DECA4TAB PO; +DEXA4TA PO; +DRON2.5C11; +ERGO500029 PO; +FAMO1TAB11; +FENT12DI8; +FENT1DIS14; +FLUC150T9 PO; +GABA-1171 PO; +LASI20TA3 PO; +LEVE10003 PO; +LEVO500T4 PO; +LORA1TAB4 PO; +NYST50SS PO; +NYST50SS SS; +OXYC-424 PO; +OXYC10TA12 PO; +POTA-151 PO; -PROC10TA4 PO; +PROC10TA5 PO; -PROHANCE 279.3MG/ML 15ML VIAL As Ordered ONE; +PROSLIQ PO; -VITA50005 PO
== END ==
LOC: M ONCR 13:41
PROVIDERS: ATTEND General Practice
DX: C34.11 Malignant neoplasm of upper lobe, right bronchus or lung (principal); G93.9 Disorder of brain, unspecified; Z79.899 Other long term (current) drug therapy; Z87.891 Personal history of nicotine dependence; Z88.1 Allergy status to other antibiotic agents; Z92.21 Personal history of antineoplastic chemotherapy; Z92.3 Personal history of irradiation

== ENCOUNTER → 2021-02-05 | Outpatient (CLI) | payer MEDICARE, OTHER ==
[~2021-02-05] MED LIST changes: +AMLO5CAP45 PO; -AMLO5CAP53 PO; -CEPH500C PO; -DECA4TAB PO; -DEXA4TA PO; -DRON2.5C11; -FAMO1TAB11; -FENT12DI8; -FENT1DIS14; -FLUC150T9 PO; -GABA-1171 PO; +ISOVUE-370 76% 100ML VIAL ONE; -LASI20TA3 PO; -LEVE10003 PO; -LEVO500T4 PO; -LORA1TAB4 PO; -NYST50SS PO; -NYST50SS SS; -OXYC-424 PO; -OXYC10TA12 PO; -POTA-151 PO; +PROC10TA4 PO; -PROC10TA5 PO; -PROSLIQ PO
--- NOTE | 2021-02-05 17:03 | REP ---
INDICATION: SCLC. COMPARISON: CT 11/21/2020, 05/18/2020; chest x-ray 07/18/2020 TECHNIQUE: A bolus of 75 mL Isovue 370 scanning through the chest with both coronal and sagittal reconstructions provided. FINDINGS: Lung gusman are well inflated. There is a new small right pleural effusion. There is mild hyperinflation. Small calcified pulmonary nodule about 3 mm on image 27 the right upper lobe mid axillary line. Some apical pleuroparenchymal scarring noted. This is mild few scattered fbullae are noted in the lung gusman. No evidence of acute infiltrate. There are 2 areas of new left paraspinal mass starting at T4 and extending through T6-7 level. There is a right paratracheal node 11 mm, new from the previous study. Some prevascular space nodes are seen which are increased in size but sub cm precarinal and AP window nodes are present, not enlarged, but several nodes here are new. Several subcentimeter hilar nodes have appeared in the interval of 2 months. These are more on the left than right. There are several left axillary lymph nodes ranging up to 13 mm in short axis with a least 5 over a cm in size in that location and these are new. There is a conglomerate jinny mass supraclavicular region and left neck base abutting the left thyroid lobe medially deep to the sternocleidomastoid muscle and extending into the superior mediastinum anterior to the left subclavian and left common carotid artery takeoffs. Other nodes the superior mediastinum up to 7 mm this conglomerate jinny mass measures 2.7 by 3.1 by 3.7 cm. Some ectasia of the ascending aorta with calcifications at the arch but no dissection or aneurysm. Trace pericardial thickening or fluid. No definite hiatal hernia. Thoracic kyphosis and degenerative changes in the midthoracic spine and elsewhere but no interval change. No acute compression deformity. The sternum, manubrium, medial clavicles, visualized portions of scapulae, humeral heads and ribs were unremarkable. Abdominal images show new extensive hypodense lesions scattered throughout the liver in all lobes and segments. The largest of confluent lesions is in the right hepatic lobe inferiorly up to 6.9 cm with other 3 and 4 cm nodules and lesions scattered throughout. Liver is enlarged since the previous study. No splenomegaly. Adrenal glands show slight thickening of limbs. It may reflect some adrenal hyperplasia. Kidneys without solid mass. There is an upper pole cyst on the left at 1.5 cm. There are nodes in the region of the jesica hepatis and measuring 3.9 by 1.2 cm between the IVC and main portal vein. Periaortic and gastrohepatic ligament nodes are seen. No ascites in the upper abdomen. IMPRESSION: 1. Evidence of a significant progression of disease with new large nodes in the left axilla, paraspinal region and extensive metastatic disease throughout the liver as an entirely new finding compared to previous study. There are also enlarging lymph nodes in the mediastinum. At the right paratracheal region a conglomerate jinny mass in the left neck base supraclavicular region abutting the left lobe of the thyroid and extending into the upper mediastinum. Some superior mediastinal nodes are also seen. 2. The lung gusman show some stable chronic changes with small nodule, cylindrical bronchiectasis but a new right pleural effusion. No parenchymal lung mass identified. <Electronically signed by Lázaro Lazcano > 02/05/21 [id number]
== END ==
LOC: M PLAIMG 14:18
PROVIDERS: ATTEND Specialist
DX: C34.90 Malignant neoplasm of unspecified part of unspecified bronchus or lung (principal)
CPT/HCPCS: 71260; Q9967

== ENCOUNTER 2021-02-22 14:03 | Inpatient (IN) | payer MEDICARE, OTHER ==
[~2021-02-22] VITALS: Ht 170.2 cm; Wt 69.1 kg
[~2021-02-22 14:03] MED LIST changes: -ISOVUE-370 76% 100ML VIAL ONE; +OXYC-424 PO
--- NOTE | 2021-02-22 15:50 | REP ---
INDICATION: multiple seizures known cancer. COMPARISON: 07/18/2020 from an outside institution TECHNIQUE: Portable FINDINGS: The technique utilized in obtaining the radiograph has magnified the cardiac silhouette and accentuated the interstitial markings. Since the last examination patchy left basilar opacities have developed with CP angle blunting. The cardiac silhouette is magnified by technique. Mild cardiomegaly cannot be ruled out. A MediPort device has been placed since the last exam the tip of which is in the region of the superior vena cava. There is no significant change in appearance of the osseous structures. IMPRESSION: Left basilar opacities as described above. Atelectasis/effusion/pneumonia. Follow-up is recommended. Other findings as described above. <Electronically signed by Ryan Waite > 02/22/21 [id number]
--- NOTE | 2021-02-22 16:19 | REP ---
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 COMPARISON: MRI 12/11/2020. TECHNIQUE: CT brain performed in the axial plane. Coronal reconstruction images are performed. FINDINGS: There is mild diffuse age related atrophic change. There is no midline shift or evidence of herniation. There is no acute intracranial hemorrhage or extra-axial fluid collection. In the high right parietal region a focal heterogeneous lesion is seen with associated edema. Correlating with the prior MRI this appears to represent increased size of a metastatic lesion at this location. In the left thalamus there is a 1.3 cm hypodense lesion. A similar appearing hypodense lesion is seen in the right regino, 11 mm in diameter, and another is seen in the left regino, 6 mm in diameter. There is a possible hypodense lesion more inferiorly in the right brainstem measuring 8 mm in diameter, although evaluation of that area is limited due to beam hardening artifact from the adjacent calvarium. There possibly is an 8 mm hypodense lesion in the right cerebellum near the midline. No calvarial lesions are seen. The visualized paranasal sinuses and mastoid air cells are clear. IMPRESSION: No acute intracranial hemorrhage. Increased size of a right parietal metastatic lesion. There are presumed metastatic lesions in the left thalamus, in the regino and possibly in the cerebellum. No herniation. <Electronically signed by Rolf Dacosta > 02/22/21 [id number]
[2021-02-22 16:24] LABS: BASO % 0.2 % (0.0-1.0); EOS % 0.2 % (0.0-3.0); HEMATOCRIT 36.2 % (36.0-47.0); HEMOGLOBIN 11.3 g/dl (12.0-15.5); LYMPH # 0.5 10^3/uL (1.5-5.0); LYMPH % 4.5 % (24.0-44.0); MEAN CORPUSCULAR HEMOGLOBIN 30.1 pg (27.0-33.0); MEAN CORPUSCULAR HGB CONC 31.2 g/dl (32.0-36.5); MEAN CORPUSCULAR VOLUME 96.5 fl (80.0-96.0); MONO # 0.8 10^3/uL (0.0-0.8); MONO % 6.4 % (2.0-8.0); NEUTROPHILS # 10.3 10^3/uL (1.5-8.5); NEUTROPHILS % 88.1 % (36.0-66.0); PLATELET COUNT, AUTOMATED 264 10^3/uL (150-450); RED BLOOD COUNT 3.75 10^6/uL (4.00-5.40); WHITE BLOOD COUNT 11.7 10^3/uL (4.0-10.0)
[2021-02-22 16:53] LABS: ALBUMIN 2.9 GM/DL (3.2-5.2); BILIRUBIN,DIRECT 0.7 MG/DL (0.0-0.2); CALCIUM LEVEL 8.6 MG/DL (8.8-10.2); CREATININE FOR GFR 1.13 MG/DL (0.55-1.30); GLOMERULAR FILTRATION RATE 51.3 (>45); MAGNESIUM LEVEL 2.5 MG/DL (1.8-2.4); PHOSPHORUS LEVEL 4.7 MG/DL (2.5-4.9); POTASSIUM SERUM 4.6 MEQ/L (3.5-5.1); TOTAL PROTEIN 6.6 GM/DL (6.4-8.2)
[2021-02-22] MEDS ORDERED: levETIRAcetam INJection 1,000 MG in D5W 100 ML IV ONE (17:10)
[2021-02-22] MEDS ORDERED: LORazepam 2 MG/ML VIAL IV STA (17:10)
[2021-02-22] MEDS ORDERED: dexameTHASONE 4 MG/ML 1ML VIAL (J1100 PER 1MG) IV ONE (17:15)
[2021-02-22] MEDS ORDERED: dexameTHASONE 20MG/5ML VIAL (J1100 PER 1MG) IV ONE (17:50)
[2021-02-22] MEDS ORDERED: HOME MED LIST COMPLETE! XX SCH (17:50)
[2021-02-22 18:13] LABS: RSV AMPLIFICATION NEGATIVE (NEGATIVE)
[2021-02-22] MEDS ORDERED: PROCHLORPERAZINE 5 MG TAB (S0183) PO PRN (18:15)
[2021-02-22] MEDS ORDERED: MOM 30ML SUSPENSION UDC PO PRN (18:15)
[2021-02-22] MEDS ORDERED: ONDANSETRON 4 MG ORAL DISINTEGRATING TAB PO PRN (18:15)
[2021-02-22] MEDS ORDERED: oxyCODONE 15 MG CR TAB PO PRN (18:15)
[2021-02-22] MEDS ORDERED: ACETAMINOPHEN TAB 650MG DOSE (2X325MG) PO PRN (18:15)
[2021-02-22] MEDS ORDERED: oxyCODONE 5MG TAB PO PRN (18:15)
[2021-02-22] MEDS ORDERED: LORazepam 2 MG/ML VIAL IV PRN (18:55)
--- NOTE | 2021-02-22 18:55 | HPEPDOC ---
[facility] Medical History & Physical Date of Admission Feb 22, 2021 Date of Service: Feb 22, 2021 Attending Physician: MAXIMILIANO LAZO MD History and Physical CHIEF COMPLAINT: Uncontrolled movements HISTORY OF PRESENT ILLNESS: Patient is a 65-year-old female who presented to the emergency room today at the insistence of her daughter due to repeated episodes of uncontrolled movements at home. Patient states these episodes have occurred over the past week or so. She states that today she had 2 episodes which lasted approximately 80 seconds each time. The patient's is present in the room and confirms these episodes. The patient does not recall what is happening during these episodes. The states that the patient starts to flail both arms and both legs repeatedly during the episodes. The patient denies having any history of episodes similar to this or any seizures prior to the past week. 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 On evaluation in the ER today, the patient was noted to have progression of her metastatic brain disease compared to prior study. The patient has been following actively both with medical oncology and radiation oncology for treatment. In the ER, the patient was determined to be having seizure activity and was treated with IV Ativan, IV Keppra, and IV Decadron. ER provider called Dr. Santos from neurology, Dr. Smalls from radiation oncology, and Dr. Wooten from medical oncology. The decision was made to admit the patient to continue on antiseizure medication, IV Decadron, and discuss further intervention such as radiation to the brain. PAST MEDICAL HISTORY: Metastatic small cell lung carcinoma with extensive spread to the liver and brain PAST SURGICAL HISTORY: Tubal ligation 1983 SOCIAL HISTORY: Former smoker for 50 years approximately half pack a day. 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 FAMILY HISTORY: Paternal grandmother with breast cancer Paternal cousin with Hodgkin lymphoma Brother with prostate cancer ALLERGIES: Please see below. REVIEW OF SYSTEMS: CONSTITUTIONAL: Denies fevers, chills, night sweats, fatigue. HEENT: Denies change in vision, change in hearing. CARDIOVASCULAR: Endorses some shortness of breath, which she attributes to her cancer. Denies chest pain, palpitations, lightheadedness. RESPIRATORY: Denies dyspnea, cough, wheezing. GASTROINTESTINAL: Endorses constipation, right upper quadrant abdominal pain, and nausea. Denies diarrhea, blood in stool. GENITOURINARY: Endorses difficulty starting urination but reports feeling she empties completely. Denies dysuria, urinary frequency, urinary urgency. SKIN: Denies rash, lesions. MUSCULOSKELETAL: Endorses neck pain on the left side extending into the shoulder NEUROLOGICAL: Denies headache, dizziness. PSYCHIATRIC: Denies change in mood. HOME MEDICATIONS: Please see below. PHYSICAL EXAMINATION: VITAL SIGNS: See below GENERAL: Alert, comfortable, in no acute distress HEENT: Normocephalic, atraumatic, PERRLA, EOMI, moist mucous membranes NECK: Supple, trachea midline. Significant tender lymphadenopathy on the left side of the neck extending into the supraclavicular nodes and left axillary nodes. There is no lymphadenopathy noted in the right cervical, supraclavicular, or axillary nodes. CARDIOVASCULAR: Regular rate and rhythm, normal S1 and S2. No murmurs, rubs, or gallops RESPIRATORY: Clear to auscultation bilaterally with equal air entry bilaterally. No wheezing, rhonchi, or rales. ABDOMEN: Soft, nondistended, bowel sounds present. Significant hepatomegaly is noted with the liver edge palpated well below the costal margin and tenderness along the liver. EXTREMITIES: No cyanosis or edema. Pulses 2+/4 in bilateral upper and lower extremities SKIN: [place], warm, dry NEUROLOGIC: Alert and oriented x3 to person, place and time. No focal deficits appreciated PSYCHIATRIC: Mood and affect appropriate LABORATORY DATA: See below. IMAGING: - CXR Left basilar opacities as described above. Atelectasis/effusion/pneumonia. Follow-up is recommended. - Head CT No acute intracranial hemorrhage. Increased size of a right parietal metastatic lesion. There are presumed metastatic lesions in the left thalamus, in the regino and possibly in the cerebellum. No herniation. MICROBIOLOGY: Please see below. ASSESSMENT: 65-year-old female with past medical history significant for metastatic small cell lung cancer with spread to the liver and brain presented with multiple episodes of seizure activity at home found to have progression of metastatic disease on brain MRI which is presumed to be the cause of her seizures admitted for further treatment and consideration to start radiation. 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 Santos/neurology consulted, appreciate recommendations We will continue on Keppra 750 mg p.o. twice daily We will continue on Decadron 4 mg IV every [address] Smalls/radiation oncology consulted, appreciate recommendations Consideration for starting brain radiation Seizure precautions. Neuro checks every 4 hours. PRN IV Ativan for seizure activity. #Metastatic small cell lung cancer with spread to the liver and brain Dr. Wooten consulted, appreciate recommendations Continue home medications for symptomatic management of pain and nausea #Constipation We will increase her regimen to Senokot-S twice daily Milk of mag as needed CODE STATUS: DNR/DNI DVT prophylaxis: Lovenox 40 daily Disposition: Pending specialist consultation, overall with her significant metastatic disease her prognosis is guarded. Vital Signs Vital Signs Date Time Temp Pulse Resp B/P (MAP) Pulse Ox O2 Delivery O2 Flow Rate FiO2 02/22/21 18:15 97.4 92 19 106/53 (70) 96 Room Air Laboratory Data Labs 24H Laboratory Tests 2 02/22/21 16:07: Immature Granulocyte % (Auto) 0.6, Neutrophils (%) (Auto) 88.1H, Lymphocytes (%) (Auto) 4.5L, Monocytes (%) (Auto) 6.4, Eosinophils (%) (Auto) 0.2, Basophils (%) (Auto) 0.2, Neutrophils # (Auto) 10.3H, Lymphocytes # (Auto) 0.5L, Monocytes # (Auto) 0.8, Eosinophils # (Auto) 0.0, Basophils # (Auto) 0.0, Nucleated Red Blood Cells % (auto) 0.0, Bedside Glucose (Misc Panel) 119H, Anion Gap 8, Glomerular Filtration Rate 51.3, Calcium Level 8.6L, Phosphorus Level 4.7, Magnesium Level 2.5H, Total Bilirubin 1.0, Direct Bilirubin 0.7H, Aspartate Amino Transf (AST/SGOT) 496H, Alanine Aminotransferase (ALT/SGPT) 297H, Alkaline Phosphatase 616H, Total Protein 6.6, Albumin 2.9L, Albumin/Globulin Ratio 0.8L 02/22/21 17:28: Coronavirus (COVID-19)(PCR) NEGATIVE, Influenza Type A (RT-PCR) NEGATIVE, Influenza Type B (RT-PCR) NEGATIVE, Respiratory Syncytial Virus (PCR) NEGATIVE CBC/BMP Laboratory Tests 8/5/21 16:07 Home Medications Scheduled Fentanyl (Fentanyl) 12 Mcg Patch.td72, 12 MCG TOP Q3RD CURRENTLY APPLIED TO LEFT SHOULDER Multivitamin,Therapeutic (Thera-Tabs) 1 Each Tablet, 1 TAB PO QHS Sennosides (Senna) 8.6 Mg Tablet, 17.2 MG PO DAILY Scheduled PRN Acetaminophen (Tylenol) 325 Mg Capsule, 650 MG PO QID PRN for MILD PAIN (PS 1-4) Ondansetron (Ondansetron Odt) 8 Mg Tab.rapdis, 8 MG PO Q8HP PRN for NAUSEA OR VOMITING Oxycodone HCl (Oxycodone HCl) 5 Mg Tablet, 1 TAB PO 6XD PRN for pain Oxycodone HCl (Oxycodone HCl ER) 30 Mg Tab.er.12h, 1 TAB PO BIDP PRN for pain Prochlorperazine Maleate (Prochlorperazine Maleate) 10 Mg Tablet, 10 MG PO Q8HP PRN for NAUSEA OR VOMITING Allergies Coded Allergies: ciprofloxacin (Verified Allergy, Intermediate, HIVES AND RASH, 08/03/20) GME ATTESTATION GME ATTESTATION My faculty preceptor for this patient encounter was physically present during the encounter and was fully available. All aspects of the patient interview, examination, medical decision making process, and medical care plan development were reviewed and approved by the faculty preceptor. The faculty preceptor is aware and concurs with the plan as stated in the body of this note and will attest to such by his/her cosignature. ATTENDING NOTE I saw Ms. Ocampo with the resident physician and we went through her history, presentation, examination, went over her studies and findings and came up with her plan together. I therefore agree with the above findings and plan. JASON CENTENO D.O. Feb 22, 2021 18:55 MAXIMILIANO LAZO MD Feb 22, 2021 19:31
[2021-02-22 21:00] VITALS: BP 118/57
[2021-02-22] MEDS: SENOKOT S TAB PO SCH (21:30)
[2021-02-23] VITALS: BP 115/58
[2021-02-23] MEDS: dexameTHASONE 4 MG/ML 1ML VIAL (J1100 PER 1MG) IV SCH ×4 (00:09→17:12)
[2021-02-23 04:00] VITALS: BP 113/53
[2021-02-23 04:18] LABS: HEMATOCRIT 35.6 % (36.0-47.0); MEAN CORPUSCULAR HEMOGLOBIN 29.9 pg (27.0-33.0); MEAN CORPUSCULAR HGB CONC 30.9 g/dl (32.0-36.5); MEAN CORPUSCULAR VOLUME 96.7 fl (80.0-96.0); PLATELET COUNT, AUTOMATED 256 10^3/uL (150-450); RED BLOOD COUNT 3.68 10^6/uL (4.00-5.40); WHITE BLOOD COUNT 21.8 10^3/uL (4.0-10.0)
[2021-02-23 04:39] LABS: ANISOCYTOSIS 1+; LYMPHOCYTES 2 % (16-44); MONOCYTES 3 % (0-5); NEUTROPHILS 87 % (28-66); PLATELET ESTIMATE NORMAL (NORMAL)
[2021-02-23 05:13] LABS: ALBUMIN 2.8 GM/DL (3.2-5.2); BILIRUBIN,TOTAL 1.9 MG/DL (0.2-1.0); CREATININE FOR GFR 1.21 MG/DL (0.55-1.30); GLOMERULAR FILTRATION RATE 47.4 (>45); MAGNESIUM LEVEL 2.7 MG/DL (1.8-2.4); TOTAL PROTEIN 6.5 GM/DL (6.4-8.2)
[2021-02-23] MEDS ORDERED: DEXTROSE 50% 50 ML SYRINGE IV STA (07:10)
[2021-02-23] MEDS ORDERED: HumuLIN R (REGULAR) INSULIN (NovoLIN R) **100U/ML** PER UNIT IV STA (07:10)
[2021-02-23] MEDS: LR 1,000 ML IV SCH ×2 (07:53→14:29)
--- NOTE | 2021-02-23 07:54 | ECGEPIP ---
[facility] - ED Test Date: 2021-02-22 Pat Name: RHONDA FROST Department: Room: - Gender: Female Law [employer] Administrator: DELIA : 1955 Requested By: GILMA Guerrero Order Number: [id number] Reading MD: Wood Capps Measurements Intervals Wiley Rate: 91 P: 48 AZ: 154 QRS: -6 QRSD: 88 T: 17 QT: 344 QTc: 423 Interpretive Statements Normal sinus rhythm Possible Anterior infarct , age undetermined NONSPECIFIC T WAVE ABNORMALITY(S) NO PRIORS FOR COMPARISON Electronically Signed on 02-23-2021 7:54:43 EDT by Wood Capps
[2021-02-23 08:00] VITALS: BP 115/55
[2021-02-23] MEDS ORDERED: CALCIUM GLUCONATE 1,000 MG in D5W MINI-BAG PLUS 100 ML IV ONE (08:00)
[2021-02-23] MEDS ORDERED: SOD POLYSTYRENE SULFONATE SUSP 15 GM/60 ML UD PO ONE (08:00)
[2021-02-23] MEDS: oxyCODONE 15 MG CR TAB PO SCH ×2 (08:06→20:37)
--- NOTE | 2021-02-23 08:53 | RADONC.CN ---
Radiation Oncology Hx/Consult Radiation Oncology Consult Date of Service: Feb 23, 2021 Pt Identifier Caitlin Ocampo is a 65 year old female former smoker seen today while admitted for a history of ES SCLC [id number] stage IVC. Yesterday she suffered 2 brief generalized tonic-clonic seizures and was admitted with CT head showing ed chang and approximately (5) total metastatic lesions. She has previously completed 4 cycles of first line chemotherapy with Dr. Wooten (09/06/20-12/08/20). She also received RT concurrent with chemo cycle 2 to a large mediastinal mass which was causing pain and dysphagia 30 Gy in 10 fractions (09/20/20-10/03/20). She was started on maintenance atezolizumab thereafter and was noted on restaging MRI head to have a solitary focus small and asymptomatic focus in the right high parietal concerning for metastatic disease. We discussed immediate WBRT versus short interval follow up MRI, as at that time the remainder of disease in the body was quiescent on immunotherapy, and the side effect profile of WBRT was undesirable to her. She has since suffered progression in the body (NB liver) and had initiated 3rd line luritrectadine earlier this week. Diagnosis/Treatment History Oncologic History As above Recent data: 02/05/21 CT chest IMPRESSION: 1. Evidence of a significant progression of disease with new large nodes in the left axilla, paraspinal region and extensive metastatic disease throughout the liver as an entirely new finding compared to previous study. There are also enlarging lymph nodes in the mediastinum. At the right paratracheal region a conglomerate jinny mass in the left neck base supraclavicular region abutting the left lobe of the thyroid and extending into the upper mediastinum. Some superior mediastinal nodes are also seen. 2. The lung gusman show some stable chronic changes with small nodule, cylindrical bronchiectasis but a new right pleural effusion. No parenchymal lung mass identified. Interval History Seen at bedside today with medicine team in attendance. She is in mild distress, coughing, wheezing, but alert and oriented. She denies EDMOND this AM. She expressed desire to continue treatment for now. Past Medical History: SCLC 2020 Past Surgical History: Tubal ligation Family History: Brother prostate cancer Maternal grandmother breast cancer Cousin Hodgkin lymphoma Social History: 50 pack year former smoker Never drinker Allergies / Meds Allergies: Coded Allergies: ciprofloxacin (Verified Allergy, Intermediate, HIVES AND RASH, 08/03/20) Home Meds Active Scripts Prochlorperazine Maleate (Prochlorperazine Maleate) 10 Mg Tablet, 10 MG PO Q8HP PRN for NAUSEA OR VOMITING, #30 TAB 3 Refills Prov:JC WOOTEN MD 02/21/21 Ondansetron (Ondansetron Odt) 8 Mg Tab.rapdis, 8 MG PO Q8HP PRN for NAUSEA OR VOMITING, #30 TAB 3 Refills Prov:JC WOOTEN MD 02/21/21 Oxycodone HCl (Oxycodone HCl ER) 30 Mg Tab.er.12h, 1 TAB PO BIDP PRN for pain MDD 2 Tablet(s) for 30 Days, #60 TAB Prov:JC WOOTEN MD 02/21/21 Oxycodone HCl (Oxycodone HCl) 5 Mg Tablet, 1 TAB PO 6XD PRN for pain MDD 2 Tablet(s) for 30 Days, #100 TAB Prov:JC WOOTEN MD 02/21/21 Reported Medications Multivitamin,Therapeutic (Thera-Tabs) 1 Each Tablet, 1 TAB PO QHS 01/10/21 Sennosides (Senna) 8.6 Mg Tablet, 17.2 MG PO DAILY, TAB 11/08/20 Fentanyl (Fentanyl) 12 Mcg Patch.td72, 12 MCG TOP Q3RD CURRENTLY APPLIED TO LEFT SHOULDER 09/27/20 Acetaminophen (Tylenol) 325 Mg Capsule, 650 MG PO QID PRN for MILD PAIN (PS 1-4) , CAP 08/03/20 Discontinued Scripts Prochlorperazine Maleate (Prochlorperazine Maleate) 10 Mg Tablet, 10 MG PO Q8HP PRN for NAUSEA OR VOMITING, #30 TAB 3 Refills Prov:JC WOOTEN MD 08/25/20 Ondansetron (Ondansetron Odt) 8 Mg Tab.rapdis, 8 MG PO Q8HP PRN for NAUSEA OR VOMITING, #30 TAB 3 Refills Prov:JC WOOTEN MD 08/25/20 Vital Signs Vital Signs Date Time Temp Pulse Resp B/P (MAP) Pulse Ox O2 Delivery O2 Flow Rate FiO2 02/23/21 08:06 18 Room Air 02/23/21 04:00 97.2 85 113/53 (73) 93 General Exam: Alert, Cooperative, Mild Distress, Other (Cachectic) Eye Exam: PERRLA, EOMI Neck Exam: Lymphadenopathy (left supraclavicular adenopathy noted) Chest Exam: Wheezing Skin Exam: Other skin issue (Pale) Neuro Exam: Normal Speech, Cranial Nerves 3-12 NL, Other (No abnormal movements) Diagnostic and Laboratory Diagnostic Review Radiologic images, relevant labs and pathology reports were personally reviewed and discussed with Ms. Ocampo. Laboratory Tests 02/22/21 16:07 02/23/21 03:56 Laboratory Tests 02/22/21 16:07: White Blood Count 11.7H, Red Blood Count 3.75L, Hemoglobin 11.3L, Hematocrit 36.2, Mean Corpuscular Volume 96.5H, Mean Corpuscular Hemoglobin 30.1, Mean Corpuscular Hemoglobin Concent 31.2L, Red Cell Distribution Width 15.9H, Platelet Count 264, Immature Granulocyte % (Auto) 0.6, Neutrophils (%) (Auto) 88.1H, Lymphocytes (%) (Auto) 4.5L, Monocytes (%) (Auto) 6.4, Eosinophils (%) (Auto) 0.2, Basophils (%) (Auto) 0.2, Neutrophils # (Auto) 10.3H, Lymphocytes # (Auto) 0.5L, Monocytes # (Auto) 0.8, Eosinophils # (Auto) 0.0, Basophils # (Auto) 0.0, Nucleated Red Blood Cells % (auto) 0.0, Bedside Glucose (Misc Panel) 119H, Sodium Level 138, Potassium Level 4.6#, Chloride Level 104, Carbon Dioxide Level 26, Anion Gap 8, Blood Urea Nitrogen 26#H, Creatinine 1.13, Glomerular Filtration Rate 51.3, Fasting Glucose 106H, Calcium Level 8.6L, Phosphorus Level 4.7, Magnesium Level 2.5H, Total Bilirubin 1.0, Direct Bilirubin 0.7H, Aspartate Amino Transf (AST/SGOT) 496H, Alanine Aminotransferase (ALT/SGPT) 297H, Alkaline Phosphatase 616H, Total Protein 6.6, Albumin 2.9L, Albumin/Globulin Ratio 0.8L 02/22/21 17:28: Coronavirus (COVID-19)(PCR) NEGATIVE, Influenza Type A (RT-PCR) NEGATIVE, Influenza Type B (RT-PCR) NEGATIVE, Respiratory Syncytial Virus (PCR) NEGATIVE 02/23/21 03:56: White Blood Count 21.8H, Red Blood Count 3.68L, Hemoglobin 11.0L, Hematocrit 35.6L, Mean Corpuscular Volume 96.7H, Mean Corpuscular Hemoglobin 29.9, Mean Corpuscular Hemoglobin Concent 30.9L, Red Cell Distribution Width 16.1H, Platelet Count 256, Immature Granulocyte % (Auto) , Neutrophils (%) (Auto) , Nucleated Red Blood Cells % (auto) 0.0, Sodium Level 139, Potassium Level 6.0H, Chloride Level 106, Carbon Dioxide Level 28, Anion Gap 5L, Blood Urea Nitrogen 40#H, Creatinine 1.21, Glomerular Filtration Rate 47.4, Fasting Glucose 112H, Ca lcium Level 9.0, Magnesium Level 2.7H, Total Bilirubin 1.9#H, Aspartate Amino Transf (AST/SGOT) 1146H, Alanine Aminotransferase (ALT/SGPT) 654H, Alkaline Phosphatase 648H, Total Protein 6.5, Albumin 2.8L, Albumin/Globulin Ratio 0.8L, Neutrophils 87H, Band Neutrophils 8, Lymphocytes (Manual) 2L, Monocytes (Manual) 3, Anisocytosis 1+, Platelet Estimate NORMAL Assessment and Plan Impression Ms. Ocampo is a 65 year old female former smoker seen today while admitted for a history of ES SCLC [id number] stage IVC. Yesterday she suffered 2 brief generalized tonic-clonic seizures and was admitted with CT head showing edema and approximately (5) total metastatic lesions. She has previously completed 4 cycles of first line chemotherapy with Dr. Wooten (09/06/20-12/08/20). She also received RT concurrent with chemo cycle 2 to a large mediastinal mass which was causing pain and dysphagia 30 Gy in 10 fractions (09/20/20-10/03/20). She was started on maintenance atezolizumab thereafter and was noted on restaging MRI head to have a solitary focus small and asymptomatic focus in the right high parietal concerning for metastatic disease. We discussed immediate WBRT versus short interval follow up MRI, as at that time the remainder of disease in the body was quiescent on immunotherapy, and the side effect profile of WBRT was undesirable to her. She has since suffered progression in the body (NB liver) and had initiated 3rd line luritrectadine earlier this week. Stage ES SCLC [id number] stage IVC Performance Status ECOG 3 Plan We had a discussion with Ms. Ocampo regarding the diagnosis at hand and available therapeutic options. She has been started on decadron and keppra, she has had no further seizures ON since starting this. I discussed the MRI findings, which are a microcosm of overall recent progression body-wide. I asked frankly if she wished to continue treatment, she asked what the alternatives were? I explained that if we do not initiate WBRT, then supportive care with AEDs and decadron for now and consideration of hospice would be appropriate. Per the QUARTZ trial the supportive approach omitting WBRT was found to be non-inferior to WBRT in terms of OS outcomes and QOL in poor performers. She would like to proceed with WBRT. We discussed the logistics of receiving radiation therapy in detail including the need for a 1-time planning session. This will occur this AM. Treatment will be 30 Gy in 10 fractions, the first treatment will be this afternoon. We reviewed the side effect profile of WBRT, fatigue, nausea, EDMOND, hair loss, and neurocognitive decline. To mitigate the risk of the latter upon discharge I recommend and would prescribe namenda, which has been shown to reduce the risk of neurocognitive decline with WBRT. After discussing the risks, benefits and alternatives to radiation therapy, Ms. Ocampo was amenable to pursuing radiotherapy. All questions were answered to the patient's satisfaction. We instructed the patient and team that if there were any questions,concerns or changes in clinical status in the interim to contact us. Recommendations WBRT 30 Gy in 10 fractions Simulation this AM First fraction later today Continue Keppra and Decadron at current doses If she is to be discharged over the weekend, then she can resume treatment as an outpatient on 02/26/21 Billing Statement Total time of [30] minutes was spent preparing for the visit [2], obtaining HPI [4], examining the patient [2], reviewing diagnostic tests [6], discussing management options [3], coordinating care [5], and writing this note [8]. PREMA FERMIN MD Feb 23, 2021 08:52
[2021-02-23] MEDS ORDERED: levETIRAcetam 250MG TABLET (KEPPRA) PO SCH (09:00)
[2021-02-23 10:28] LABS: CREATININE FOR GFR 1.42 MG/DL (0.55-1.30); GLOMERULAR FILTRATION RATE 39.4 (>45); POTASSIUM SERUM 4.9 MEQ/L (3.5-5.1)
[2021-02-23] MEDS: ENOXAPARIN 40MG/0.4ML SYRINGE (J1650 PER 10MG) SC SCH (10:46)
[2021-02-23] MEDS: SENOKOT S TAB PO SCH ×2 (10:47→20:34)
[2021-02-23 12:00] VITALS: BP 113/52
[2021-02-23 13:17] LABS: CALCIUM LEVEL 9.2 MG/DL (8.8-10.2); CREATININE FOR GFR 1.3 MG/DL (0.55-1.30); GLOMERULAR FILTRATION RATE 43.6 (>45); POTASSIUM SERUM 4.8 MEQ/L (3.5-5.1)
--- NOTE | 2021-02-23 13:18 | IPNPDOC ---
Text Note Date of Service The patient was seen on 02/23/21. NOTE S: Pt seen and evaluated at bedside this AM. She tells me none of her sx on [place] have changed. [facility] and pt scheduled to begin whole brain radiation therapy this AM. She was quite emotional about this, but is in agreement w/ the plan. Reports unimproved SOB, left sided neck pain, abd pain, constipation, difficulty urinating. Denies n/v. O: GEN: sitting up in bed, alert and awake, tearful and anxious HEENT: NC/AT, EOMI, nares patent, dry mucous membranes, significant left sided submental/supraclavicular lymphadenopathy CARDIO: normal heart sounds, RRR, no MRG PULM: CTA b/l, no WRR, no accessory muscles used ABD: normal BS, soft, RUQ abd tenderness w/ palpation, nondistended, significant hepatomegaly w/ liver edge palpated well below costal margin EXTREMITIES: significant left axillary lymphadenopathy, no edema IMAGING: CXR (02/22) Left basilar opacities as described above. Atelectasis/effusion/pneumonia. Follow-up is recommended CT Head (02/22) No acute intracranial hemorrhage. Increased size of a right parietal metastatic lesion. There are presumed metastatic lesions in the left thalamus, in the regino and possibly in the cerebellum. No herniation. A/P: 65F PMH small cell lung CA w/ liver and brain metastasis w/ multiple episodes of seizure activity now well controlled, found to have progression of brain metastasis now undergoing whole brain radiation therapy, w/ new onset hyperkalemia and PARISA. #Seizure 2/2 brain metastasis On Keppra BID, Decadron Q6H, Ativan IV PRN On LR, Dexamethasone Seizure precautions, neuro checks Q4H Neurology (Dr. Santos) on consult RadOnc (Dr. Sanon) on consult, will begin whole brain radiation therapy today #Small cell lung CA w/ liver and brain metastasis [facility]. Pt treated since 08/2020 w/ Atezolizumab (21day cycle) until 02/21 when chemotherapy switched to Lurbinectadine (21day cycle) due to progression of disease. Pt's 1st dose 02/21. On home meds for pain (Oxycodone, Fentanyl) On home meds for nausea (Zofran, Compazine) MedOnc (Dr. Wooten) on consult #Hyperkalemia Pt's K+ 6.0. this AM Given 1dose Kayexalate, Insulin. 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 All aspects of the patient interview, examination, medical decision making process, and medical care plan development were reviewed and approved by the faculty preceptor. The faculty preceptor is aware and concurs with the plan as stated in the body of this note and will attest to such by his/her cosignature. ATTENDING NOTE I have personally examined Ms. Ocampo today and have discussed her course, findings and plan and I agree with the above noted summary, findings and plan. VS,Fishbone, I+O VS, Fishbone, I+O Laboratory Tests 02/22/21 16:07 02/23/21 03:56 02/23/21 09:56 Vital Signs Date Time Temp Pulse Resp B/P (MAP) Pulse Ox O2 Delivery O2 Flow Rate FiO2 02/23/21 08:06 18 Room Air 02/23/21 08:00 97.3 98 115/55 (75) 94 I&O- Last 24 Hours up to 6 AM 02/23/21 06:00 Intake Total 110 ml Output Total 150 ml Balance -40 ml Deana Conti DO Feb 23, 2021 13:18 MAXIMILIANO LAZO MD Feb 24, 2021 11:44
[2021-02-23 16:00] VITALS: BP 116/60
[2021-02-23] MEDS ORDERED: BISACODYL 10 MG SUPP PR PRN (16:55)
--- NOTE | 2021-02-23 18:29 | IPNPDOC ---
Date Seen The patient was seen on 02/23/21. 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 Patient has been on various treatments. She was initially seen at our office on 03 August 2020 with severe left-sided back pain and extensive lymphadenopathy in the left supraclavicular and periaortic and retroperitoneal lymph node area. She was initially treated with chemotherapy with carboplatin, etoposide and atezulizumab and after 4 cycle she continued on atezulizumab as a maintenance. More recently she was found to have progressive disease while atezolizumab and was switched to lurbinectadine 1 dose every 3 weeks. First dose was given on 21 February 2021. At home her daughter noticed some seizure-like activity and brought her to emergency room. CT scan of the brain revealed increased size of right parietal metastatic lesion in the left thalamus which was 1.3 cm. There was another hypodense lesion in the right regino 11 mm in diameter and another in the left regino 6 mm in diameter. There was a possible hypodense lesion more inferiorly in the right brainstem measuring 8 mm in diameter. Possibility of 8 mm hypodense lesion in the right cerebellum near the midline. There was no calvarial lesion and paranasal sinuses are normal. Patient has been seen by neurologist and has been started on Keppra and also dexamethasone. Patient currently is stable but complains of severe constipation because of oxycodone which she is getting more frequently. At home she was able to take care of her constipation with the help of Senokot but she is complaining of severe constipation for last 3 days. Currently she seems to be comfortable although she knows that she has extensive disease. OBJECTIVE PHYSICAL EXAMINATION: VITAL SIGNS: Please see below. GENERAL: [A pleasant female in no acute distress] HEENT: [WNL EOMI oral cavity clear without mucositis or thrush] CARDIOVASCULAR: [RRR normal S1-S2]. RESPIRATORY: Clear to auscultation and percussion . ABDOMINAL: [Abdomen is slightly distended and firm likely due to stool] EXTREMITIES: [No pedal edema] NEUROLOGICAL: [No focal neurological deficit] PSYCHOLOGICAL: [Slightly depressed] Assessment and suggestions: Patient has extensive metastatic small cell lung carcinoma with enlarging lymph nodes and now metastatic to the brain. Patient has been given 1 dose of chemotherapy with lurbinectadine on 23 February 2021. She has already started radiation therapy to whole brain today. Dr. Sanon has seen her. The plan is to complete 10 radiation over next 2 weeks. Patient needs to stay on Kyprolis as such. Dexamethasone doses should be tapered off and I will leave it to Dr. Sanon to decide when to taper off dexamethasone. Patient needs to have neck surgery for her need or possible Dulcolax suppository as she has not moved her bowels for last 3 days and she feels distressed because of that. She should be on some laxative every day as she is on oxycodone for her pain. Talk to the patient and her in detail and discussed about the plan. She knows this is not a curable disease and if it continues to progress she will be hospice candidate. VS, I&O, 24H, Fishbone Vital Signs/I&O Vital Signs Date Time Temp Pulse Resp B/P (MAP) Pulse Ox O2 Delivery O2 Flow Rate FiO2 02/23/21 17:13 20 Room Air 02/23/21 12:00 98.1 88 113/52 (72) 95 I&O- Last 24 Hours up to 6 AM 02/23/21 06:00 Intake Total 110 ml Output Total 150 ml Balance -40 ml Laboratory Data 24H LABS Laboratory Tests 2 02/23/21 03:56: Immature Granulocyte % (Auto) , Neutrophils (%) (Auto) , Nucleated Red Blood Cells % (auto) 0.0, Neutrophils 87H, Band Neutrophils 8, Lymphocytes (Manual) 2L, Monocytes (Manual) 3, Anisocytosis 1+, Platelet Estimate NORMAL, Anion Gap 5L, Glomerular Filtration Rate 47.4, Calcium Level 9.0, Magnesium Level 2.7H, Total Bilirubin 1.9#H, Aspartate Amino Transf (AST/SGOT) 1146H, Alanine Aminotransferase (ALT/SGPT) 654H, Alkaline Phosphatase 648H, Total Protein 6.5, Albumin 2.8L, Albumin/Globulin Ratio 0.8L 02/23/21 09:56: Anion Gap 9, Glomerular Filtration Rate 39.4L, Calcium Level 9.0 02/23/21 12:44: Anion Gap 10, Glomerular Filtration Rate 43.6L, Calcium Level 9.2 CBC/BMP Laboratory Tests 02/23/21 03:56 02/23/21 09:56 02/23/21 12:44 JC LOMBARDI MD Feb 23, 2021 18:29
[2021-02-23 20:00] VITALS: BP 103/55
[2021-02-23] MEDS: levETIRAcetam 250MG TABLET (KEPPRA) PO SCH (20:34)
[2021-02-24] VITALS: BP 112/58
[2021-02-24] MEDS: dexameTHASONE 4 MG/ML 1ML VIAL (J1100 PER 1MG) IV SCH ×3 (00:47→11:39)
[2021-02-24 04:00] VITALS: BP 130/67
[2021-02-24 06:07] LABS: HEMATOCRIT 31.4 % (36.0-47.0); MEAN CORPUSCULAR HEMOGLOBIN 30.2 pg (27.0-33.0); MEAN CORPUSCULAR HGB CONC 31.8 g/dl (32.0-36.5); MEAN CORPUSCULAR VOLUME 94.9 fl (80.0-96.0); PLATELET COUNT, AUTOMATED 224 10^3/uL (150-450); RED BLOOD COUNT 3.31 10^6/uL (4.00-5.40)
[2021-02-24 06:11] LABS: WHITE BLOOD COUNT 32.9 10^3/uL (4.0-10.0)
[2021-02-24 06:43] LABS: ALBUMIN 2.6 GM/DL (3.2-5.2); BILIRUBIN,TOTAL 0.6 MG/DL (0.2-1.0); CALCIUM LEVEL 7.7 MG/DL (8.8-10.2); CREATININE FOR GFR 1.36 MG/DL (0.55-1.30); GLOMERULAR FILTRATION RATE 41.4 (>45); POTASSIUM SERUM 5.9 MEQ/L (3.5-5.1); TOTAL PROTEIN 5.7 GM/DL (6.4-8.2)
[2021-02-24 06:48] LABS: LYMPHOCYTES 1 % (16-44); METAMYELOCYTES 1 % (0-0); NEUTROPHILS 85 % (28-66)
[2021-02-24 06:50] LABS: ANISOCYTOSIS 1+
[2021-02-24 06:53] LABS: PLATELET ESTIMATE NORMAL (NORMAL); SCHISTOCYTES 1+
[2021-02-24 07:47] VITALS: BP 120/61
[2021-02-24] MEDS ORDERED: HumuLIN R (REGULAR) INSULIN (NovoLIN R) **100U/ML** PER UNIT IV STA (07:49)
[2021-02-24] MEDS ORDERED: DEXTROSE 50% 50 ML SYRINGE IV STA (07:49)
[2021-02-24] MEDS ORDERED: LR 1,000 ML IV SCH (08:30)
[2021-02-24] MEDS: ENOXAPARIN 40MG/0.4ML SYRINGE (J1650 PER 10MG) SC SCH (08:53)
[2021-02-24] MEDS: levETIRAcetam 250MG TABLET (KEPPRA) PO SCH (08:54)
[2021-02-24] MEDS: oxyCODONE 15 MG CR TAB PO SCH (08:55)
[2021-02-24] MEDS: SENOKOT S TAB PO SCH (08:55)
[2021-02-24] MEDS ORDERED: SOD POLYSTYRENE SULFONATE SUSP 15 GM/60 ML UD PO ONE (09:00)
[2021-02-24] MEDS ORDERED: CALCIUM GLUCONATE 1,000 MG in D5W MINI-BAG PLUS 100 ML IV ONE (09:00)
[2021-02-24] MEDS ORDERED: LEVE10003 PO (10:35)
[2021-02-24] MEDS ORDERED: DECA4TAB PO (10:39)
--- NOTE | 2021-02-24 10:50 | CR ---
CONSULTATION DATE: 02/23/2021 REFERRING PHYSICIAN: MAXIMILIANO LAZO MD REASON FOR CONSULTATION: Seizures. HISTORY OF PRESENT ILLNESS: Caitlin Ridley is a 65-year-old woman who was diagnosed with metastatic small-cell lung carcinoma with metastasis to brain and liver, and neck. She has done chemotherapy. She was going to start radiation therapy to her brain for metastasis. She has elevated liver functions. She started having seizure like spells over the last three weeks. According to the patient and her she may have had between 10-15 episodes. They have increased in frequency. They were occurring in the beginning once a week and then every couple of days to two or three times a day lately. In these episodes, according to her , she has brief jerks of her body which continue for 1-2 minutes without losing conscious, tongue biting or urinary incontinence. The thinks that it affects both sides of her body. He describes them as sudden myoclonic jerks which continue for 1-2 minutes. She and her deny any staring episodes of loss of consciousness. She came to the Emergency Department and we started her on Keppra after intravenous loading dose. She reports significant improvement in these episodes and they have no happened in more than 24 hours. She had her first radiation therapy to her brain today. She denies any headaches, dysphagia, dysarthria, diplopia or urinary incontinence, loss of consciousness, numbness or weakness of her arms and legs or imbalance. She states that she has neck pain and was told that she may have metastasis to the left side of her neck. DIAGNOSTIC STUDIES: CT scan of her head was reviewed and showed multiple brain metastasis including brainstem, cerebellum, left thalamus and large metastasis to right parietal lobe of brain. Her WBCs were 11.7 with a hemoglobin of 11.3. Creatinine was 1.13. Her GFR decreased from 51.3 to 43.6. Her total bilirubin was 1. AST was 496, ALT 297, alkaline phosphatase 616. PAST MEDICAL HISTORY: Metastatic small-cell lung cancer with metastasis to liver, brain and neck, tubal ligation. SOCIAL HISTORY: She quit smoking. She smoked a half a pack a day for 50 years. She denies any illicit drugs or alcohol intake. 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 She lives with her . FAMILY HISTORY: Grandmother with a history of breast cancer and paternal cousin with Hodgkin's lymphoma. Brother with prostate cancer. HOME MEDICATIONS: 1. Fentanyl 12 mcg q. 3 days. 2. Multivitamin. 3. Oxycodone extended release 30 mg p.o. b.i.d. and 5 mg p.o. q. 6 hours p.r.n. 4. Prochlorperazine 10 mg t.i.d. p.r.n. 5. Zofran 8 mg p.o. t.i.d. p.r.n. ALLERGIES: Ciprofloxacin. REVIEW OF SYSTEMS: All systems were reviewed and found to be noncontributory except as mentioned in the history of present illness. PHYSICAL EXAMINATION: Temperature is 97.3, pulse is 98, blood pressure is 115/55, 94% saturation on room air. Heart: Regular rate and rhythm. Lungs are clear to auscultation. Abdomen is soft, nontender and nondistended. No pedal edema. No musculoskeletal abnormalities. No rash. No signs of meningeal irritation. Patient is awake, alert and oriented to place, person and time. Normal speech, comprehension and repetition. Extraocular muscles are intact. No facial weakness. Tongue and uvula are midline. There is 5/5 strength in all upper extremities. Deep tendon reflexes are 2+ throughout. She has mildly decreased sensation in her feet. She has mild bilateral dysmetria of hands. ASSESSMENT: 1. 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 2. Focal motor seizures on the differential diagnosis. 3. Multiple brain metastasis including large right parietal lobe, bilateral brainstem, cerebellum, left thalamic brain metastasis due to Stage IV small cell lung cancer which has metastasized to liver as well. PLAN: 1. Increase Keppra to 1000 mg p.o. b.i.d. 2. Follow-up with radiation oncology and medical oncology for radiation therapy and chemotherapy. 3. Her EEG can be done on an outpatient basis. 4. She is aware that she should not be driving. 5. Follow with our office in 1-2 weeks after hospital discharge. Avoid Depakote due to high LFTs. Consider Vimpat or Lamotrigine if her spells persist in the future.
[2021-02-24 11:49] VITALS: BP 120/64
[2021-02-24 12:48] LABS: CALCIUM LEVEL 7.8 MG/DL (8.8-10.2); CREATININE FOR GFR 1.25 MG/DL (0.55-1.30); GLOMERULAR FILTRATION RATE 45.6 (>45); POTASSIUM SERUM 5.2 MEQ/L (3.5-5.1)
[2021-02-24] MEDS ORDERED: fentaNYL 12 MCG/HR PATCH TOP SCH (16:00)
[2021-02-24] MEDS ORDERED: FENTANYL REMOVAL DOCUMENTATION MISC XX SCH (16:00)
--- NOTE | 2021-02-24 17:03 | DS.PDOC ---
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 HISTORY OF PRESENT ILLNESS: 65-year-old female who presented to the emergency room today at the insistence of her daughter due to repeated episodes of uncontrolled movements at home. Patient states these episodes have occurred over the past week or so. She states that today she had 2 episodes which lasted approximately 80 seconds each time. The patient's is present in the room and confirms these episodes. The patient does not recall what is happening during these episodes. The states that the patient starts to flail both arms and both legs repeatedly during the episodes. The patient denies having any history of episodes similar to this or any seizures prior to the past week. 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 On evaluation in the ER today, the patient was noted to have progression of her metastatic brain disease on head CT compared to prior study of brain MRI. The patient has been following actively both with medical oncology and radiation oncology for treatment. In the ER, the patient was determined to be having seizure activity and was treated with IV Ativan, IV Keppra, and IV Decadron. ER provider called Dr. Santos from neurology, Dr. Smalls from radiation oncology, and Dr. Wooten from medical oncology. The decision was made to admit the patient to continue on antiseizure medication, IV Decadron, and discuss further intervention such as radiation to the brain. HOSPITAL COURSE: Patient was admitted to the hospital and continued on Keppra, Decadron, and as needed Ativan. Fortunately she did not continue having seizures and did not require any doses of Ativan during her actual admission stay. The patient made the decision to be DNR/DNI on admission and MOST form was completed. Consulting services included Dr. Santos for antiseizure medication management, Dr. Sanon for consideration of whole brain radiation treatment, and Dr. Wooten for discussion of goals of care and progression of her small cell lung carcinoma. The patient had a planning session with Dr. Smalls for whole brain radiation and then had her first treatment on 02/23/2021 the patient will follow up on Friday for her next treatment session with Dr. Sanon. The patient will continue to follow-up as scheduled with Dr. Wooten for radiation treatments. Additionally, on initial evaluation in the emergency department a chest x-ray was obtained which showed some left lower lobe opacities. Patient did not clinically appear to have any signs of pneumonia and therefore was not treated for such. During the patient's admission she did become hyperkalemic and required t reatment with Kayexalate, calcium gluconate, and insulin with D50. The patient's hyperkalemia persists mildly on admission and should be followed up by her oncology and primary teams. During the patient's admission she was also found to be constipated and required stool softeners and a suppository for treatment. She states that she does take stool softeners and has suppositories available for her at home and will continue to use these to regulate her bowel movements. DISCHARGE MEDICATIONS: Please see below. ALLERGIES: Please see below. PHYSICAL EXAMINATION ON DISCHARGE: VITAL SIGNS: Please see below. GENERAL: Alert, comfortable, in no acute distress HEENT: Normocephalic, atraumatic, PERRLA, EOMI, moist mucous membranes NECK: Supple, trachea midline. Significant tender lymphadenopathy on the left side of the neck extending into the supraclavicular nodes and left axillary nodes. There is no lymphadenopathy noted in the right cervical, supraclavicular, or axillary nodes. CARDIOVASCULAR: Regular rate and rhythm, normal S1 and S2. No murmurs, rubs, or gallops RESPIRATORY: Clear to auscultation bilaterally with equal air entry bilaterally. No wheezing, rhonchi, or rales. ABDOMEN: Soft, nondistended, bowel sounds present. Significant hepatomegaly is noted with the liver edge palpated well below the costal margin and tenderness along the liver. EXTREMITIES: No cyanosis or edema. Pulses 2+/4 in bilateral upper and lower extremities SKIN: [place], warm, dry NEUROLOGIC: Alert and oriented x3 to person, place and time. No focal deficits appreciated PSYCHIATRIC: Mood and affect appropriate LABORATORY DATA: Please see below. IMAGING: (Impression per radiologist report) CXR Left basilar opacities as described above. Atelectasis/effusion/pneumonia. Follow-up is recommended. Head CT No acute intracranial hemorrhage. Increased size of a right parietal metastatic lesion. There are presumed metastatic lesions in the left thalamus, in the regino and possibly in the cerebellum. No herniation. PROGNOSIS: Poor given the patient's metastatic spread to both liver and brain. ACTIVITY: As tolerated. DIET: As tolerated DISCHARGE PLAN: Home with follow-up to radiation oncology, medical oncology, DISPOSITION: Home, Self-Care. DISCHARGE INSTRUCTIONS: Follow-up with PCP in 7 to 10 days Follow-up with neurology in 2 weeks Follow-up with radiation oncology and medical oncology as scheduled DISCHARGE CONDITION: Stable. TIME SPENT ON DISCHARGE: 35 minutes. Vital Signs/I&Os Vital Signs Date Time Temp Pulse Resp B/P (MAP) Pulse Ox O2 Delivery O2 Flow Rate FiO2 02/24/21 11:49 98.3 74 18 120/64 (82) 91 Room Air I&O- Last 24 Hours up to 6 AM 02/24/21 06:00 Intake Total 1430 ml Output Total 350 ml Balance 1080 ml Laboratory Data Labs 24H Laboratory Tests 2 02/24/21 05:46: Immature Granulocyte % (Auto) , Neutrophils (%) (Auto) , Nucleated Red Blood Cells % (auto) 0.0, Neutrophils 85H, Band Neutrophils 13H, Lymphocytes (Manual) 1L, Metamyelocytes 1H, Anisocytosis 1+, Schistocytes 1+, Platelet Estimate NORMAL, Anion Gap 5L, Glomerular Filtration Rate 41.4L, Calcium Level 7.7#L, Magnesium Level 3.0H, Total Bilirubin 0.6#, Aspartate Amino Transf (AST/SGOT) 1522H, Alanine Aminotransferase (ALT/SGPT) 995H, Alkaline Phosphatase 533H, Total Protein 5.7L, Albumin 2.6L, Albumin/Globulin Ratio 0.8L 02/24/21 12:11: Anion Gap 6L, Glomerular Filtration Rate 45.6, Calcium Level 7.8L CBC/BMP Laboratory Tests 02/24/21 05:46 02/24/21 12:11 Discharge Medications Scheduled Dexamethasone (Decadron) 4 Mg Tablet, 4 MG PO DAILY Fentanyl (Fentanyl) 12 Mcg Patch.td72, 12 MCG TOP Q3RD, (Reported) CURRENTLY APPLIED TO LEFT SHOULDER Multivitamin,Therapeutic (Thera-Tabs) 1 Each Tablet, 1 TAB PO QHS, (Reported) Sennosides (Senna) 8.6 Mg Tablet, 17.2 MG PO DAILY, (Reported) levETIRAcetam (levETIRAcetam) 1,000 Mg Tablet, 1,000 MG PO BID Scheduled PRN Acetaminophen (Tylenol) 325 Mg Capsule, 650 MG PO QID PRN for MILD PAIN (PS 1- 4), (Reported) Ondansetron (Ondansetron Odt) 8 Mg Tab.rapdis, 8 MG PO Q8HP PRN for NAUSEA OR VOMITING Oxycodone HCl (Oxycodone HCl) 5 Mg Tablet, 1 TAB PO 6XD PRN for pain Oxycodone HCl (Oxycodone HCl ER) 30 Mg Tab.er.12h, 1 TAB PO BIDP PRN for pain Prochlorperazine Maleate (Prochlorperazine Maleate) 10 Mg Tablet, 10 MG PO Q8HP PRN for NAUSEA OR VOMITING Allergies Coded Allergies: ciprofloxacin (Verified Allergy, Intermediate, HIVES AND RASH, 08/03/20) GME ATTESTATION My faculty preceptor for this patient encounter was physically present during the encounter and was fully available. All aspects of the patient interview, examination, medical decision making process, and medical care plan development were reviewed and approved by the faculty preceptor. The faculty preceptor is aware and concurs with the plan as stated in the body of this note and will attest to such by his/her cosignature. GME ATTESTATION E ATTESTATION My faculty preceptor for this patient encounter was physically present during the encounter and was fully available. All aspects of the patient interview, examination, medical decision making process, and medical care plan development were reviewed and approved by the faculty preceptor. The faculty preceptor is aware and concurs with the plan as stated in the body of this note and will attest to such by his/her cosignature. ATTENDING NOTE I personally examined Ms. Ocampo and discussed her findings and management wi th the resident team. I agree with the above summary and plan. Briefly she has metastatic SCLC with POD and presented with c/f seizures with noted progression of brain mets with enlargement of lesion with associated edema, as well transaminitis with known extensive liver mets and she was started on steroid therapy and AED with resolution of symptoms. She had a discussion with Dr. Wooten and Serina and will now be discharged home with plan for WBRT and continued treatment with oncology. She is now being discharge on keprra 750 BID and 4mg daily of dexamethasone. JASON CENTENO D.O. Feb 24, 2021 17:03 MAXIMILIANO LAZO MD Feb 25, 2021 10:16
[2021-02-26] MEDS ORDERED: DEXA4TA PO (13:55)
== END 2021-02-24 14:28 | disposition home or self-care (01) | DRG 101 ==
LOC: M ED 14:03 → M ED INP 17:28 → M PCU 20:56
PROVIDERS: ADMIT Internal Medicine; ATTEND Internal Medicine
DX: G40.409 Other generalized epilepsy and epileptic syndromes, not intractable, without status epilepticus (principal); C79.31 Secondary malignant neoplasm of brain; C78.7 Secondary malignant neoplasm of liver and intrahepatic bile duct; C34.90 Malignant neoplasm of unspecified part of unspecified bronchus or lung; N17.9 Acute kidney failure, unspecified; K59.00 Constipation, unspecified; Z66 Do not resuscitate; E87.5 Hyperkalemia; Z20.822 Contact with and (suspected) exposure to COVID-19; Z87.891 Personal history of nicotine dependence; Z79.899 Other long term (current) drug therapy; Z88.1 Allergy status to other antibiotic agents; Z92.21 Personal history of antineoplastic chemotherapy; Z92.3 Personal history of irradiation

== ENCOUNTER 2021-03-08 12:39 | Outpatient (RCR) | payer MEDICARE, OTHER ==
[~2021-03-08 12:39] MED LIST changes: +DECA4TAB PO; +DEXA4TA PO; +LEVE10003 PO
[2021-03-14] MEDS ORDERED: FENT1DIS14 (13:13)
== END 2021-03-20 ==
LOC: M ONCR 12:39
PROVIDERS: ATTEND General Practice
DX: C79.31 Secondary malignant neoplasm of brain (principal)

== ENCOUNTER → 2021-03-22 | Outpatient (CLI) | payer MEDICARE, OTHER ==
[~2021-03-22] MED LIST changes: +FENT1DIS14
--- NOTE | 2021-03-22 13:43 | RADENCPD ---
Date/Time of Encounter Date of Encounter: Mar 22, 2021 Time of Encounter: 13:40 Encounter Caitlin came in for a brief follow up today to see how she is faring 2 weeks following completion of palliative WBRT and RT to her left neck/axillary adenopathy. She reports that she has felt some improvement in her left neck pain and dysphagia. She has been having intermittent double vision, corrects with focusing, some residual fatigue, no abnormal movements. On exam EOMI and CN are intact, gross LE and UE motor are intact. Left supraclavicular adenopathy is reduced in size and tenderness. She is on 4 mg decadron with plan to taper to 2 mg on Friday. I encouraged her to keep the plan for taper of the decadron with goal of off and to call with any recrudescence of her symptoms. I believe the double vision is secondary to fatigue from WBRT, will monitor. She will return in 2 weeks to assess her progress. PREMA FERMIN MD Mar 22, 2021 13:43
== END ==
LOC: M ONCR 12:49
PROVIDERS: ATTEND General Practice
DX: C34.11 Malignant neoplasm of upper lobe, right bronchus or lung (principal); Z92.3 Personal history of irradiation

== ENCOUNTER → 2021-04-06 | Outpatient (CLI) | payer MEDICARE, OTHER ==
--- NOTE | 2021-04-06 10:13 | RADENCPD ---
Date/Time of Encounter Date of Encounter: Apr 06, 2021 Time of Encounter: 10:09 Encounter Caitlin came in today for a brief follow up visit. She has successfully weaned off steroids. She has decreased pain in the left neck, notes the nodes there are smaller. She has some intermittent blurry vision still, but compared to recent weeks this is much better. She has no new sites of pain except for some mild cramping in her legs. On exam she has no focal CN findings. The left neck there is some mild hyperpigmentation the supraclavicular node is soft and minimal in size. She is doing well having recently started zepzelca with Dr. Wooten. I am reassured that the WBRT and palliative RT to the left neck has done a good job palliating her symptoms. She is due for MRI head with me on 06/04/21. I will see her then unless she needs me for new symptoms sooner than that. PREMA FERMIN MD Apr 06, 2021 10:13
== END ==
LOC: M ONCR 09:49
PROVIDERS: ATTEND General Practice
DX: C34.11 Malignant neoplasm of upper lobe, right bronchus or lung (principal); C77.3 Secondary and unspecified malignant neoplasm of axilla and upper limb lymph nodes; C79.31 Secondary malignant neoplasm of brain; Z92.3 Personal history of irradiation

== ENCOUNTER → 2021-05-10 | Outpatient (CLI) | payer MEDICARE, OTHER ==
[~2021-05-10] MED LIST changes: +CEPH500C PO; +DRON2.5C11; +FAMO1TAB11; +ISOVUE-370 76% 100ML VIAL As Ordered ONE; +NYST50SS PO; +NYST50SS SS
--- NOTE | 2021-05-10 13:36 | REP ---
INDICATION: LUNG CA COMPARISON: Multiple the latest 02/05/2021 TECHNIQUE: Standard helical technique after the intravenous administration of 100 cc Isovue 370 FINDINGS: Axillary adenopathy seen on the prior examination has abated. Nonenlarged mediastinal and hilar lymph nodes are identified. The pleural effusions seen previously have gotten even smaller. There is no pericardial effusion. The imaged upper abdomen again shows liver metastasis. The imaged retroperitoneum shows retroperitoneal adenopathy. Paraspinal adenopathy seen intrathoracic Kay in the prior exam has improved rather significantly in only 1 nodule seen to persist which measures 2 x 1.2 cm and lies immediately posterior to the proximal descending thoracic aorta. Bone window technique throughout the exam shows no significant change in appearance of the imaged osseous structures. Evaluation of the lung gusman shows a new ground-glass opacity in the right middle lobe which measures 3.3 cm in its greatest dimension. An additional new ground-glass opacities seen posterior to this abutting the major fissure extending to the infrahilar region and measuring approximately 2.2 cm. There are no other significant lung field changes. No new solid nodules have developed. IMPRESSION: 1. There is been significant improvement in the adenopathy as described above. 2. New lung field ground-glass opacities as described above exact etiology uncertain. Short interval follow-up is suggested. No new abnormal lung nodules have developed. There are tiny bilateral pleural effusions which have also improved from the prior exam. 3. Other findings as described above. <Electronically signed by Ryan Waite > 05/10/21 4502
== END ==
LOC: M RAD 12:54
PROVIDERS: ATTEND Specialist
DX: C34.90 Malignant neoplasm of unspecified part of unspecified bronchus or lung (principal)

== ENCOUNTER → 2021-06-04 | Outpatient (CLI) | payer MEDICARE, OTHER ==
[~2021-06-04] MED LIST changes: -ISOVUE-370 76% 100ML VIAL As Ordered ONE; +PROHANCE 279.3MG/ML 15ML VIAL As Ordered ONE
--- NOTE | 2021-06-04 16:29 | REPVR ---
PROCEDURE INFORMATION: Exam: MR Head Without and With Contrast Exam date and time: 06/04/2021 11:58 AM Age: 66 years old Clinical indication: Condition or disease; Other: Brain mets; Additional info: Brain mets S/P wbrt TECHNIQUE: Imaging protocol: MR of the head without and with intravenous contrast. Contrast material: PROHANCE; Contrast volume: 5 ml; Contrast route: INTRAVENOUS (IV); COMPARISON: CT Head without contrast 02/22/2021 3:14 PM FINDINGS: Brain: The brain demonstrates generalized volume loss. Slight patchy increased signal intensity seen in the deep white matter on the T2 weighted imaging, may reflect chronic small vessel ischemic change, and/or postradiation change. This is mildly more conspicuous compared to the prior study. No new enhancing metastases identified. With specific attention to deep right parietal convexity sulcus, no discrete enhancement appreciated. A small area of gliosis has developed along the adjacent parietal cortex. On the T2 weighted imaging, profound hypointensity suggestive of some localized hemosiderin, image 20 series 601. The FLAIR sequence suggests trace, localized parenchymal gliosis, image 20 series 701. Punctate foci of high signal on the diffusion-weighted sequence series 404: right parietal cortex image 23, central anterior regino image 10. No correlative areas of enhancement identified on the postcontrast imaging. These areas appear isointense to slightly hypointense on the ADC map, in particular the pontine lesion, image 10 series 403. Additionally with the pontine lesion, suggestion of slight correlative high signal on the T2 weighted imaging, image 8 series 601, image 8 series 701. 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 Cerebral ventricles: The ventricles are mildly enlarged in keeping with volume loss. Bones/joints: Unremarkable. Paranasal sinuses: Trace ethmoid mucosal thickening. Mastoid air cells: Left mastoid effusion has developed since the prior study which could be related to radiation therapy. Orbital cavity: Unremarkable. Soft tissues: Unremarkable. IMPRESSION: 1. Trace hemosiderin staining and gliosis along right parietal cortex, adjacent to a previously demonstrated metastasis. At this time, no significant enhancement. 2. No new metastases identified elsewhere. 3. On the diffusion-weighted imaging, foci of high signal in the regino, additionally along right parietal cortex raising the possibility of recent, focal acute infarcts. In particular, there could be an acute pontine lacunar infarct. The possibility of artifact is considered, in particular for the right parietal cortical lesion. Electronically signed by: Ruthie Parr On 06/04/2021 13:18:46 PM
== END ==
LOC: M RAD 10:29
PROVIDERS: ATTEND General Practice
DX: C79.31 Secondary malignant neoplasm of brain (principal)
CPT/HCPCS: 70553; A9576

== ENCOUNTER → 2021-06-07 | Outpatient (CLI) | payer MEDICARE, OTHER ==
[~2021-06-07] MED LIST changes: +FLUC150T PO; +LORA1TAB4 PO; -PROHANCE 279.3MG/ML 15ML VIAL As Ordered ONE; +PROSLIQ PO
--- NOTE | 2021-06-07 11:44 | RADONC ---
Radiation Oncology Hx/FUP Radiation Oncology Hx/FUP Date of Service: Jun 07, 2021 Pt Identifier Caitlin Ocampo is a 66 year old female former smoker seen today while admitted for a history of ES SCLC [id number] stage IVC. She has previously completed 4 cycles of first line chemotherapy with Dr. Wooten (09/06/20-12/08/20). She also received RT concurrent with chemo cycle 2 to a large mediastinal mass which was causing pain and dysphagia 30 Gy in 10 fractions (09/20/20-10/03/20). She was started on maintenance atezolizumab thereafter and was noted on restaging MRI head to have a solitary focus small and asymptomatic focus in the right high parietal concerning for metastatic disease. We discussed immediate WBRT versus short interval follow up MRI, as at that time the remainder of disease in the body was quiescent on immunotherapy, and the side effect profile of WBRT was undesirable to her. She then suffered a generalized seizure and was found to have intracranial progression. She completed WBRT with tod 02/23/21-03/08/21. She also suffered simultaneous progression in the body (NB liver) and initiated 3rd line luritrectadine. Diagnosis/Treatment History Oncologic History As above. Recent data: 06/04/21 MRI brain IMPRESSION: 1. Trace hemosiderin staining and gliosis along right parietal cortex, adjacent to a previously demonstrated metastasis. At this time, no significant enhancement. 2. No new metastases identified elsewhere. 3. On the diffusion-weighted imaging, foci of high signal in the regino, additionally along right parietal cortex raising the possibility of recent, focal acute infarcts. In particular, there could be an acute pontine lacunar infarct. The possibility of artifact is considered, in particular for the right parietal cortical lesion. 05/10/21 CT chest IMPRESSION: 1. There is been significant improvement in the adenopathy as described above. 2. New lung field ground-glass opacities as described above exact etiology uncertain. Short interval follow-up is suggested. No new abnormal lung nodules have developed. There are tiny bilateral pleural effusions which have also improved from the prior exam. 3. Other findings as described above. Interval History Caitlin is struggling with fatigue. No DEMOND, N, V, but no appetite. She is eating adding ensure daily. She has excessive daytime tiredness. She has not had any seizures. She would like to stop keppra. Current Therapy Luritrectadine Stage ES SCLC [id number] stage IVC Social History: 50 pack year former smoker Never drinker Allergies / Meds Allergies: Coded Allergies: ciprofloxacin (Verified Allergy, Intermediate, HIVES AND RASH, 08/03/20) Home Meds Active Scripts Lorazepam (Lorazepam) 1 Mg Tablet, 1 TAB PO DAILY for anxiety MDD 1 Tablet(s) for 1 Day, #1 TAB Take 1 tab 1 hour prior to your MRI scan Prov:PREMA FERMIN MD 06/07/21 Amino Acids/Protein Hydrolys (Prosource No Carb Protein Liq) 887 Ml Liquid, 30 ML PO DAILY, #1 CONTAINER 5 Refills Prov:PREMA FERMIN MD 06/07/21 Cephalexin (Cephalexin) 500 Mg Capsule, 500 MG PO QID for 7 Days, #28 CAP Prov:JC WOOTEN MD 05/23/21 Nystatin (Nystatin Oral Susp) 100,000 Unit/1 Ml Oral.susp, 5 ML SS QID for 10 Days, #200 ML 2 Refills Take this medicine after meals and at bedtime. Prov:Michell Carrillo 05/17/21 Dexamethasone (Dexamethasone) 4 Mg Tablet, 4 MG PO ASDIRECTED, #60 TAB 2 tab 2 times/day x 5 day, then 1 tab 2 times/day x 10 day, then 1 tab once/day x 10 day, then 1/2 tab once/day x 10 day Prov:PREMA FERMIN MD 02/26/21 Prochlorperazine Maleate (Prochlorperazine Maleate) 10 Mg Tablet, 10 MG PO Q8HP PRN for NAUSEA OR VOMITING, #30 TAB 3 Refills Prov:JC WOOTEN MD 02/21/21 Ondansetron (Ondansetron Odt) 8 Mg Tab.rapdis, 8 MG PO Q8HP PRN for NAUSEA OR VOMITING, #30 TAB 3 Refills Prov:JC WOOTEN MD 02/21/21 Oxycodone HCl (Oxycodone HCl ER) 30 Mg Tab.er.12h, 1 TAB PO BIDP PRN for pain MDD 2 Tablet(s) for 30 Days, #60 TAB Prov:JC WOOTEN MD 02/21/21 Oxycodone HCl (Oxycodone HCl) 5 Mg Tablet, 1 TAB PO 6XD PRN for pain MDD 2 Tablet(s) for 30 Days, #100 TAB Prov:JC WOOTEN MD 02/21/21 Reported Medications Famotidine (Famotidine) 20 Mg Tablet 05/17/21 Dronabinol (Dronabinol) 2.5 Mg Capsule 04/26/21 Fentanyl (Fentanyl) 25 Mcg Patch.td72 03/14/21 Multivitamin,Therapeutic (Thera-Tabs) 1 Each Tablet, 1 TAB PO QHS 01/10/21 Sennosides (Senna) 8.6 Mg Tablet, 17.2 MG PO DAILY, TAB 11/08/20 Acetaminophen (Tylenol) 325 Mg Capsule, 650 MG PO QID PRN for MILD PAIN (PS 1- 4), CAP 08/03/20 Discontinued Scripts levETIRAcetam (levETIRAcetam) 1,000 Mg Tablet, 1000 MG PO BID for 30 Days, #60 TAB Prov:JASON CENTENO D.O. 02/24/21 Review of Systems Review of Systems Constitutional: Reports: Fatigue; Denies: Weight Loss Eyes: Denies: Pain, Vision change HEENT: Denies: Head Aches Skin: Denies: Rash Pulmonary: Reports: Dyspnea; Denies: Cough Cardiovascular: Denies: Chest Pain Gastrointestinal: Denies: Abdominal Pain Hematologic: Denies: Bruising, Bleeding Excessively Musculoskeletal: Reports: Back pain; Denies: Neck pain Neurological: Reports: Weakness; Denies: Numbness Psych: Reports: Mood Normal Physical Examination Vital Signs Wt 134 lbs General Exam: Alert, Cooperative, No Acute Distress Eye Exam: PERRLA, EOMI ENT EXAM: Atraumatic Neck Exam: Supple Neuro Exam: Normal Gait, Normal Speech, Cranial Nerves 3-12 NL Psych Exam: Mental status NL Diagnostic and Laboratory Diagnostic Review Radiologic images, relevant labs and pathology reports were personally reviewed and discussed with Ms. Ocampo. Assessment and Plan Impression Assessment Ms. Ocampo is a 66 year old female with a history of former smoker seen today while admitted for a history of ES SCLC [id number] stage IVC. She has previously completed 4 cycles of first line chemotherapy with Dr. Wooten (09/06/20-12/08/20). She also received RT concurrent with chemo cycle 2 to a large mediastinal mass which was causing pain and dysphagia 30 Gy in 10 fractions (09/20/20-10/03/20). She was started on maintenance atezolizumab thereafter and was noted on restaging MRI head to have a solitary focus small and asymptomatic focus in the right high parietal concerning for metastatic disease. We discussed immediate WBRT versus short interval follow up MRI, as at that time the remainder of disease in the body was quiescent on immunotherapy, and the side effect profile of WBRT was undesirable to her. She then suffered a generalized seizure and was found to have intracranial progression. She completed WBRT with namenda 02/23/21-03/08/21. She also suffered simultaneous progression in the body (NB liver) and initiated 3rd line luritrectadine. She has a CR on MRI to WBRT, no residual disease identified. She is struggling with some short term memory deficits as well as fatigue. Because she has no residual intracranial disease I instructed her to taper off keppra, take 500 mg daily for the next week, then trial off. Hopefully this will ameliorate her tiredness to some extent. I also discussed adding prosource to her daily diet, which hopefully will facilitate building back some muscle given that her recent scans show some improvement in the body as well. I will see her again in 3 months with MRI brain. Performance Status ECOG 2 Plan Ms. Ocampo was encouraged to call with questions or concerns in the interim period. Billing Statement Total time of [26] minutes was spent preparing for the visit [2], obtaining HPI [5], examining the patient [3], reviewing diagnostic tests [5], discussing management options [5], coordinating care [3], and writing this note [8]. PREMA FERMIN MD Jun 07, 2021 11:43
== END ==
LOC: M ONCR 10:27
PROVIDERS: ATTEND General Practice
DX: C34.11 Malignant neoplasm of upper lobe, right bronchus or lung (principal); Z92.3 Personal history of irradiation; Z92.21 Personal history of antineoplastic chemotherapy; Z87.891 Personal history of nicotine dependence; Z88.1 Allergy status to other antibiotic agents; Z79.899 Other long term (current) drug therapy

== ENCOUNTER → 2021-06-13 | Outpatient (CLI) | payer MEDICARE, OTHER ==
[~2021-06-13] MED LIST changes: +ISOVUE-370 76% 100ML VIAL As Ordered ONE
--- NOTE | 2021-06-13 12:04 | REP ---
INDICATION: SHORTNESS OF BREATH COMPARISON: 05/10/2021 TECHNIQUE: Axial contrast enhanced images from the thoracic inlet to the upper abdomen using pulmonary embolus technique with multiplanar re-formations. 75 ml Isovue 370 intravenous contrast material administered without complication. This CT examination was performed using the following dose reduction techniques: Automated exposure control, adjustment of mA and/or kv according to the patient's size, and use of iterative reconstruction technique. FINDINGS: Satisfactory enhancement of the pulmonary vasculature is achieved and no filling defects are identified to suggest pulmonary embolus. Thoracic aorta demonstrates atherosclerotic changes without aneurysm or dissection. Heart and pericardium are grossly normal. Large bilateral pleural effusions are appreciated along with bibasilar atelectasis. Subtle ill-defined patchy opacities in the bilateral perihilar regions are noted along with somewhat more prominent ill-defined airspace disease in the left apex and along the anterior margin of the left upper lobe at the level of the [id number] in the anterior chest wall. These findings are nonspecific but represent new changes. Differential diagnosis includes acute active disease and progressive post radiation type changes. No obvious axillary or hilar adenopathy is appreciated. However, subtle subcarinal mediastinal soft tissue representing adenopathy cannot be excluded. Limited evaluation of the upper abdomen demonstrates perihepatic ascites and innumerable hepatic metastases. IMPRESSION: 1. Large bilateral pleural effusions and somewhat ill-defined areas of opacity as described above which are most pronounced in the left upper lung zone. Differential diagnosis includes active disease as well as post radiation type changes. 2. Significant hepatic metastases and new perihepatic ascites. <Electronically signed by Arturo Muniz > 06/13/21 [id number]
== END ==
LOC: M RAD 11:22
PROVIDERS: ATTEND Family Medicine
DX: R18.8 Other ascites (principal); C78.7 Secondary malignant neoplasm of liver and intrahepatic bile duct; R06.02 Shortness of breath
CPT/HCPCS: 71275; Q9967

== ENCOUNTER → 2021-07-04 | Outpatient (CLI) | payer MEDICARE, OTHER ==
[~2021-07-04] MED LIST changes: -AMLO5CAP45 PO; +AMLO5CAP53 PO; +FENT12DI8; -FLUC150T PO; +FLUC150T9 PO; +GABA-1171 PO; -ISOVUE-370 76% 100ML VIAL As Ordered ONE; +LASI20TA3 PO; +LEVO500T4 PO; +LIDOCAINE 1% MDV 20ML VIAL As Ordered ONE; +OXYC10TA12 PO; +POTA-151 PO; -PROC10TA4 PO; +PROC10TA5 PO
== END ==
LOC: M IRPRO 13:29
PROVIDERS: ATTEND Specialist
DX: J90 Pleural effusion, not elsewhere classified (principal); Z53.8 Procedure and treatment not carried out for other reasons
CPT/HCPCS: 76604; J1642